=== PATIENT | male | born 1965 | race Caucasian/White ===

== ENCOUNTER 2023-11-13 16:43 | Inpatient (IN) | payer OTHER, SELFPAY ==
[2023-11-13] VITALS (25 sets, daily range): BP systolic 84–120; BP diastolic 45–70; BMI 28.8; BMI 28.1
[2023-11-13] MEDS: TYLENOL 1000 MG PO (12:42)
[2023-11-13 13:04] LABS: % Basophils 0.6 % (0-2); % Eosinophils 0.6 % (0-6); % Lymphocytes 5.5 % (20.5-51.1); % Monocytes 7.1 % (1.7-9.3); % Neutrophils 85.2 % (42.2-75.2); Absolute Basophils 0.1 10^3/uL (0-0.2); Absolute Eosinophils 0.1 10^3/uL (0-0.7); Absolute Immature Granulocytes 0.2 10^3/uL (0-0.05); Absolute Lymphocytes 0.9 10^3/uL (1.2-3.4); Absolute Monocytes 1.1 10^3/uL (0.1-0.6); Absolute Neutrophils 13.4 10^3/uL (1.4-6.5); Hemoglobin 13.1 g/dL (13.0-18.0); Mean Corp Hgb Conc. 35.4 g/dL (33.0-37.0); Mean Corpuscular Hgb 29.1 pg (27.0-31.0); Mean Corpuscular Volume 82.2 fL (80.0-94.0); Mean Platelet Volume 9.8 fL (7.4-10.4); Nucleated Red Blood Cells % 0 % (-); Platelet Count 230 10^3/uL (130-400); Red Cell Dist. Width 20.3 % (11.5-14.5); White Blood Cell Count 15.7 10^3/uL (4.8-10.8)
[2023-11-13 13:17] LABS: Lactic Acid 3.1 mmol/L (0.7-2.0)
[2023-11-13 13:19] LABS: COVID-19 Antigen Negative (Negative)
[2023-11-13 13:27] LABS: ALT (SGPT) 17 U/L (0-50); AST (SGOT) 21 U/L (17-59); Albumin 3.7 g/dl (3.5-5.0); Alkaline Phosphatase 80 U/L (38-126); Blood Urea Nitrogen 23 mg/dl (9-20); Calcium 8.7 mg/dl (8.4-10.2); Carbon Dioxide 21 mmol/L (22-30); Chloride 97 mmol/L (98-107); Estimated Creatinine Clearance 58 ml/min; Glucose 183 mg/dl (70-99); Potassium 3.3 mmol/L (3.5-5.1); Sodium 127 mmol/L (135-145); Total Bilirubin 1.8 mg/dl (0.2-1.3); Total Protein 7.3 g/dl (6.3-8.2); eGFR > 60.00
--- NOTE | 2023-11-13 14:52 | ED.GENMED ---
History of Present Illness
General
Chief Complaint: Cold/Flu/URI Symptoms
Time Seen by Provider: 11/13/23 12:38
Travel History
Have you had any contact with someone who has COVID-19?: No
Do you have any symptoms of coronavirus? Fever > 100 degrees, chills, cough, shortness of breath, sore throat, loss of taste or smell, muscle aches, or headache?: Yes
Symptoms:: cough, chills, fever
History of Present Illness
History of Present Illness:
58-year-old male with history of HIV on HAART therapy, uncertain about his viral load or CD4 counts, presents to the emergency department for evaluation of fever and cough that began on Tuesday. His primary care doctor advised him to come to the
emergency department earlier this week but he declined. Called 911 today due to shortness of breath where he was noted to be hypoxic on room air. He also notes a recent diagnosis of lymphoma but has not yet started chemotherapy
Past History
Past History
ED Past Medical History: Other (Syphilis, Hypoglycemia, PNA); Negative Asthma, HTN, Hypercholesterolemia or NIDDM
ED Past Surgical History: None
Social History
Tobacco: Smoker
Alcohol: None
Personal: Single
Living: alone
Family History
Family History: Negative Diabetes, Hypertension or CAD
Review of Systems
Review of Systems
Allergies reviewed?: Yes
All Other Systems: ROS reviewed and negative except as documented in HPI and ROS
Phy Exam
Physical Exam
Physical Exam:
GEN: Ill-appearing, diaphoretic, tachypnea
Eyes: PERRLA, EOMs intact, no scleral icterus
HENT: NCAT, oral mucosa moist, no JVD, no cervical adenopathy.
Lungs:Coarse rhonchi in the left middle and lower lobes
Cardiac: Tachycardic, regular
Abdomen: S, NT, ND, NABS, no masses or hepatosplenomegaly
Neuro: AO x 3, no focal deficits to BUE/BLE, normal sensation throughout
MSK: No gross deformity or ecchymosis. No edema. No digital clubbing
Skin: No rashes, petechiae. Normal color, no pallor or jaundice.
Psych: Calm, cooperative, proper hygiene
Course
Orders/Labs/Results
Orders:
Orders
11/13/23 12:34
Electrocardiogram (*1) Urgent
Reason for Study: Chest Pain
Cardiac Monitoring- Treatment ONCE
IV Insert/Care/Rem.- Treatment PRN
11/13/23 12:35
EKG- Treatment ONCE
11/13/23 12:38
Acetaminophen [Tylenol] 1,000 mg .ROUTE .STK-MED ONE
11/13/23 12:41
Acetaminophen [Tylenol] 1,000 mg PO NOW STA
11/13/23 12:49
CR Chest - 2 Views Urgent
Comment:
Reason For Exam: cough/SOB
11/13/23 12:50
0.9% Sodium Chloride 1000 ml [Nss] 2,000 ml IV BOLUS
11/13/23 12:51
COVID-19 Antigen Urgent
Source: Nasal Swab
Complete Blood Count/With Diff Urgent
Comprehensive Metabolic Panel Urgent
Lactic Acid Urgent
Blood Culture Q30M
BONNIE Source: Blood/Venous
Specimen Description:
Date Specimen was Collected: 11/13/23
Time Specimen was Collected: 12:35
Influenza A+B Rapid Molecular Urgent
BONNIE Source: Nasal Swab
Specimen Description:
11/13/23 12:52
Blood Culture Q30M
BONNIE Source: Blood/Venous
Specimen Description:
Date Specimen was Collected: 11/13/23
Time Specimen was Collected: 12:35
11/13/23 14:24
Azithromycin 500 mg/250 ml [Zithromax Infusion] 500 mg in 250 ml IV NOW
CefTRIAXone [Rocephin] 1,000 mg IV NOW STA
Abnormal Lab Results
11/13/23
12:51
WBC 15.7 H 10^3/uL
(4.8-10.8)
RBC 4.50 L 10^6/uL
(4.70-6.10)
Hct 37.0 L %
(39.0-52.0)
RDW 20.3 H %
(11.5-14.5)
Abs Immat Gran (auto) 0.2 H 10^3/uL
(0-0.05)
Absolute Neuts (auto) 13.4 H 10^3/uL
(1.4-6.5)
Absolute Lymphs (auto) 0.9 L 10^3/uL
(1.2-3.4)
Absolute Monos (auto) 1.1 H 10^3/uL
(0.1-0.6)
Immature Gran % 1.0 H %
(0-0.5)
Neutrophils % 85.2 H %
(42.2-75.2)
Lymphocytes % 5.5 L %
(20.5-51.1)
Sodium 127 L mmol/L
(135-145)
Potassium 3.3 L mmol/L
(3.5-5.1)
Chloride 97 L mmol/L
(98-107)
Carbon Dioxide 21 L mmol/L
(22-30)
BUN 23 H mg/dl
(9-20)
Glucose 183 H mg/dl
(70-99)
Lactic Acid 3.1 H mmol/L
(0.7-2.0)
Total Bilirubin 1.8 H mg/dl
(0.2-1.3)
11/13/23 12:51
11/13/23 12:51
Vital Signs
Initial and Last Documented VS:
Initial Vital Signs
Temp Pulse Resp BP Pulse Ox
102.9 F H 124 30 120/68 87
11/13/23 12:36 11/13/23 12:36 11/13/23 12:36 11/13/23 12:36 11/13/23 12:36
Last Documented Vital Signs
Temp Pulse Resp BP Pulse Ox
97.9 F 93 22 99/68 98
11/13/23 15:14 11/13/23 14:05 11/13/23 14:05 11/13/23 15:00 11/13/23 15:15
MDM/Problems Addressed
MDM/Problems Addressed:
Chest x-ray independently interpreted by me shows an extensive left-sided pneumonia. The patient is high risk for outpatient therapy given that he has hypoxic, has underlying malignancy with lymphoma, and has known HIV positive status with unknown
viral load or CD4 count. Will admit him on broad-spectrum IV antibiotics for supplemental oxygen and further management
Comment
Comment:
EKG independently interpreted by me shows a sinus tachycardia at a rate of [address] changes concerning for ischemia, QTc is 450
*Critical Care Note
Total Time (30-74mins, 75-104mins- exclusive of procedures): Not Applicable
ED Attending Note
-
Portions of this chart may have been created with voice recognition software.� Occasional wrong word or��sound alike� substitutions may have occurred due to the inherent limitations of voice recognition software.
Discharge Plan
Departure
Patient Disposition: Admit
Date of Disposition: 11/13/23
Time of Disposition: 14:52
Admit to: Med/Surg
Presentation/result/management discussed w/ accepting MD/DO: Hospitalist
Discharge Problem:
Community acquired pneumonia
Prescriptions:
No Action
prednisone 20 mg Tablet
40 mg PO DAILY
Patient Comments:
11/13/2023, prescription states, take 2 tablets daily@0800 'until Oncologist tells you stop'.
Biktarvy 50-200-25 mg Tablet
1 tab PO DAILY
Referrals:
Anabela Marley CRNP [Family Provider] -
Interventions
Interventions:
*Risk Screen - Suicide Last Done: 11/13/23 12:36
*General Assessment Last Done: 11/13/23 12:36
*Neglect/Abuse Screening Last Done: 11/13/23 12:36
ED- Fall Risk Assessment Last Done: 11/13/23 12:57
*ED COVID-19 Vaccine History Last Done: 11/13/23 12:36
Discharge Date and Time
Print Language: NEPALESE
--- NOTE | 2023-11-13 15:06 | PHANOTE ---
Addendum entered by Callum Griffiths 11/13/23 15:15:
11/13/2023, med rec tech, pt. states to take only one prescription medication daily but he does not know its name or strength; pt. states to get this med. from the [facility] but closed at time of interview.
Original Note:
11/13/2023, med rec tech, pt. obtunded at time of interview; used pharmacy fill data to compile a list of pt.'s meds.; pt. has no recent [facility] records; primary contact could not be reached.
[2023-11-13] MEDS: NSS 2000 IV (15:13)
[2023-11-13] MEDS: ZITHROMAX INFUSION 250 IV (15:31)
[2023-11-13] MEDS: ROCEPHIN 1000 MG IV (15:31)
--- NOTE | 2023-11-13 15:42 | HPS.HSE ---
Family Physician
-
Family Physician: Anabela Marley
Chief Complaint
-
cough
History of Present Illness
58-year-old man with history of HIV (dx on 2019) on HAART therapy, uncertain about his viral load or CD4 counts, comes to the emergency department for evaluation of fever and cough that began 6 days ago. His primary care doctor advised him to come
to the emergency department earlier this week but he declined. Patient Called 911 today due to shortness of breath. EMS noted that he was hypoxic on room air. He also reports a recent diagnosis of lymphoma (has not yet started chemotherapy). At
the time of my interview he was delirious and unable to answer most of my questions, but cooperated with exam.
Medical History
Past Medical History
Past Medical History: Reports Other
Additional Past Medical History:
Syphilis,
Hypoglycemia,
PNA
Abdominal lymphadenopathy
Acute kidney failure, unspecified
Controlled type 2 diabetes mellitus with hyperglycemia, unspecified bus cleaner insulin use status
HIV infection
Acquired immune deficiency syndrome (AIDS)
Disorders of lymph node and lymphatics
Acute febrile illness
Abdominal lymphadenopathy
Acute kidney failure, unspecified
Cigarette nicotine dependence
Chronic shortness of breath
Past Surgical History: Reports None
Social History
Unable to obtain full social history at this time due to: Acuity
Family History
Family History: Not pertinent
Allergies / Home Medications
Allergies reflects when Allergies were last updated in [employer].
Home Medications with original date entered in [employer]
Allergy/Medication List:
Allergies
Allergy/AdvReac Type Severity Reaction Status Date / Time
shellfish derived Allergy Unknown Unknown Verified 11/13/23 12:35
chicken derived Allergy Rash Verified 11/13/23 12:35
Home Medications
bictegravir 50 mg-emtricitabine 200 mg-tenofovir alafenam 25 mg tablet (Biktarvy) 1 tab PO DAILY 11/13/23
prednisone 20 mg tablet 40 mg PO DAILY 11/13/23
Review of Systems
-
Unable to obtain full review of systems at this time due to: Acuity
History Source: Patient
Physical Exam
Vital Signs
Vital Signs
Temp Pulse Resp BP Pulse Ox
97.9 F 93 22 99/68 98
11/13/23 15:14 11/13/23 14:05 11/13/23 14:05 11/13/23 15:00 11/13/23 15:15
Physical Exam
General: Well Developed, Well Nourished, Appears in Distress and Fever
HEENT: NormoCephalic, Nose Appears Normal and Ears Appear Normal
Respiratory: Rales, Rhonchi and Decreased Breath Sounds
Cardiac: S1/S2 and Tachycardia
GI: Soft, Non Tender and Non Distended
Musculoskeletal: No Clubbing, No Cyanosis and No Edema
Skin: Warm; No Dry
Neuro: No Awake, Alert, Oriented or AO x 3
Psych: Confused
Laboratory Results
-
11/13/23 12:51
11/13/23 12:51
Laboratory Results
Lactic Acid 3.1 mmol/L (0.7-2.0) H 11/13/23 12:51
Total Bilirubin 1.8 mg/dl (0.2-1.3) H 11/13/23 12:51
AST 21 U/L (17-59) 11/13/23 12:51
ALT 17 U/L (0-50) 11/13/23 12:51
Alkaline Phosphatase 80 U/L (38-126) 11/13/23 12:51
Data Reviewed
-
Lab Data: Labs Reviewed by me
Impression/Plan
-
IMPRESSION:
58 man with HIV, and PNA. CD4 count not known. Viral load not known. Notable findings:
Pulse 124
Temp 102.9
WBC 15.7
Na 127
K 3.3
BUN/Creat 23/1.3
CXR: Bilateral central fluffy infiltrates
Lactic acid 3.1
PLAN:
1. PNA, in setting of HIV. Meets criteria for sepsis.
Sepsis abx and fluids per protocol
2. HIV - likely taking Biktarvy.
Will order Biktarvy, and try to contact PCP later in week for med list
Check CD4
Check viral load
3. Low Na, Low K, likely hypovolemic
Replete
recheck in am
4. BUN/Creat >20, likely from dehydration
IV saline
Presumed full code
VCD for DVTp
[2023-11-13 17:38] LABS: Lactic Acid 1.8 mmol/L (0.7-2.0)
[2023-11-13] MEDS: TYLENOL/FEVERALL 650 MG RECTAL (18:05)
--- NOTE | 2023-11-13 18:31 | PHA.VAN.IN ---
Assessment
- Assessment
Renal Function: Appears elevated from baseline (SCr 1.3, baseline 0.8)
Maximum Temperature: 102.9
Concomitant Antimicrobials: piperacillin-tazobactam
Plan
- Plan
Initial / Loading Dose: 2000 mg pending administration (23 mg/kg)
Maintenance Regimen: dose by level
Monitoring: R 11/13 am
MRSA Screen: Ordered per protocol (PCR)
Pharmacokinetics Vancomycin I
- -
Patient Age: 58
Patient Sex: Male
Vancomycin Day #: 1
Indication: Pulmonary/Respiratory
Requesting Provider: Dr Ventura
Pertinent Antimicrobial Allergies:
no pertinent allergies
Height / Weight:
Height 5 ft 8 in
Actual Weight 86 kg
Adjusted BW in k.8
Pertinent Past Medical History: HIV,
- Vital Signs / Lab Results
Temp Pulse Resp BP Pulse Ox
101.1 F H 94 21 97/68 76
11/13/23 18:02 11/13/23 16:45 11/13/23 16:45 11/13/23 16:03 11/13/23 17:43
Lab Results - Hematology
11/13/23
12:51
WBC 15.7 H
Lab Results - Chemistry
11/13/23
12:51
BUN 23 H
Creatinine 1.3
Estimated Creat Clear 58
Albumin 3.7
11/13/23 11/13/23
12:51 17:13
Lactic Acid 3.1 H 1.8
Microbiology Results
11/13/23 12:51 Influenza Types A & B (АЛЕКСАНДР) - Final
Nasal Swab Negative for Influenza A & B, NAAT
Negative results must be combined with clinical observations
and patient history.
Nucleic Acid Amplification test (NAAT)performed on the
[employer] platform.
[2023-11-13 18:58] LABS: HCO3 19.5 mmol/L (21-28); O2 Saturation % 99.4 % (94-98); PCO2 30 mmHg (35-48); PO2 135 mmHg (83-108); pH 7.42 (7.35-7.45)
--- NOTE | 2023-11-13 19:00 | PTCARENOTE ---
Pt admitted to ICU 3370 from ED. Received on NIV50% FiO2, now weaned to 40% by SENIOR ESCROW OFFICER. Afebrile 98.6 Sinus tach up to 120.
Lung sounds with crackles in the left base and exp. wheeze throughout.
CHG bath given.
--- NOTE | 2023-11-13 19:30 | W.PN.UPDATE ---
Update Note
Progress Note Update
Consulted infectious disease Dr. Canela, recommendations received: obtain sputum culture, legionella, pneumococcal; agreed with current antibiotic regime for now. ABG obtained, will trial patient between non invasive ventilation and HFNC as patient
tolerates. Transitioned to HFNC, tachypnea has improved, oxygen saturation 98% and breathing more comfortably.
Patient's HIV doctor is Dr. Anabela Marley, he does not know his most recent CD4 count. Lab pending on CD4 count.
[2023-11-13] MEDS: NSS 1000 IV (20:01)
[2023-11-13] MEDS: VANCOCIN 540 MG IV (20:04)
[2023-11-13] MEDS: KCL 270 MEQ IV (20:07)
[2023-11-13] MEDS: BIKTARVY 50-200-25 MG TABLET 1 TABLET PO (20:51)
--- NOTE | 2023-11-13 21:30 | PTCARENOTE ---
Report received from previous shift RN [id number]. Pt in bed, AAO3, anxious and diaphoretic. Pt received on NIV O2; reviewed ABG results and pt status w CAR DRIVER JONAH Pierson ordered to wean pt to HiFlow nasal cannula O2, RT notified. Pt less anxious when
transitioned to HiFlow O2 and able to have some marco antonio robert. Pt denies SOB and cough, lung sounds are decreased/coarse throughout w insp/exp wheeze throughout to auscultation. Pt informed of needed sputum specimen, specimen container left at bedside.
Telemetry rhythm reveals ST, HR 100's, no edema noted, palpable peripheral pulses present. Extremities cool and clammy to touch. HyperBS, abdomen soft round nontender. Pt reports recent weight loss and decreased appetite. Urinal at bedside. Skin
intact. R AC int w IVF per order, R FA int flushed. Safe environment maintained, call garcia within reach. Will monitor closely.
[2023-11-13] MEDS: ZOSYN 100 IV (22:07)
--- NOTE | 2023-11-13 22:44 | W.PN.SEPSIS ---
Sepsis
Vital Signs
Temp Pulse Resp BP Pulse Ox
98.6 F 81 18 84/69 99
11/13/23 20:15 11/13/23 22:31 11/13/23 22:31 11/13/23 22:31 11/13/23 22:31
Physical Exam
Physical Exam:
A focused exam was performed after fluid resuscitation.
Capillary Refill
Bilateral Upper Extremity:
Prashant Time: Less than 3 sec
Bilateral Lower Extremity:
Prashant Time: Less than 3 sec
Pulse Evaluation
Bilateral Radial:
Pulse Evaluation: Present
Bilateral Dorsalis Pedis:
Pulse Evaluation: Present
[2023-11-14] VITALS (25 sets, daily range): BP systolic 80–100; BP diastolic 54–86; BMI 28.4
[2023-11-14 00:12] LABS: Magnesium 1.7 mg/dl (1.6-2.3)
[2023-11-14 01:02] LABS: APTT 23.6 Sec (23.4-35.0); INR 1.39; PT 16.9 Sec (11.4-14.6)
--- NOTE | 2023-11-14 01:05 | PTCARENOTE ---
RT able to taper HiFlow O2 to 40L/40%, pt's pox remains >96%. Pt sleeping intermittently when undisturbed. Afebrile. Less wheezing auscultated, remains decreased/coarse. MAP remains > 65mmHg, Levophed never initiated per order parameters. Will
continue to monitor closely.
[2023-11-14] MEDS: NSS 1000 IV ×3 (01:09→11:28)
[2023-11-14] MEDS: ZOSYN 100 IV ×2 (02:57→07:49)
[2023-11-14 04:28] LABS: % Basophils 0.4 % (0-2); % Immature Granulocytes 0.8 % (0-0.5); % Lymphocytes 11.4 % (20.5-51.1); % Monocytes 9.9 % (1.7-9.3); % Neutrophils 76.5 % (42.2-75.2); Absolute Basophils 0.1 10^3/uL (0-0.2); Absolute Eosinophils 0.1 10^3/uL (0-0.7); Absolute Immature Granulocytes 0.1 10^3/uL (0-0.05); Absolute Lymphocytes 1.4 10^3/uL (1.2-3.4); Absolute Monocytes 1.2 10^3/uL (0.1-0.6); Absolute Neutrophils 9.5 10^3/uL (1.4-6.5); Hematocrit 33.9 % (39.0-52.0); Hemoglobin 11.4 g/dL (13.0-18.0); Mean Corp Hgb Conc. 33.6 g/dL (33.0-37.0); Mean Corpuscular Hgb 29.5 pg (27.0-31.0); Mean Corpuscular Volume 87.8 fL (80.0-94.0); Mean Platelet Volume 10.2 fL (7.4-10.4); Nucleated Red Blood Cells % 0 % (-); Platelet Count 175 10^3/uL (130-400); Red Blood Cell Count 3.86 10^6/uL (4.70-6.10); Red Cell Dist. Width 21.1 % (11.5-14.5); White Blood Cell Count 12.5 10^3/uL (4.8-10.8)
--- NOTE | 2023-11-14 04:39 | PTCARENOTE ---
AM lab work sent per orders. Upon attempting to reposition pt in bed, pt found to have been incontinent of water hamilton/orange bm. Incontinence care and CHG bath/linen change provided. No other change in pt assessment. Will continue to monitor closely.
[2023-11-14 04:52] LABS: ALT (SGPT) 11 U/L (0-50); AST (SGOT) 21 U/L (17-59); Albumin 2.8 g/dl (3.5-5.0); Alkaline Phosphatase 66 U/L (38-126); Blood Urea Nitrogen 26 mg/dl (9-20); Calcium 8.3 mg/dl (8.4-10.2); Carbon Dioxide 19 mmol/L (22-30); Chloride 110 mmol/L (98-107); Estimated Creatinine Clearance 69 ml/min; Glucose 118 mg/dl (70-99); Magnesium 2.5 mg/dl (1.6-2.3); Phosphorus 3.9 mg/dl (2.5-4.5); Potassium 3.6 mmol/L (3.5-5.1); Sodium 137 mmol/L (135-145); Total Bilirubin 1.2 mg/dl (0.2-1.3); eGFR > 60.00
[2023-11-14 04:55] LABS: Vancomycin Random 12.9 ug/ml
--- NOTE | 2023-11-14 07:47 | PHA.VAN.FU ---
Vancomycin Assessment / Plan
- Assessment
Renal Function: SCR Decreasing (If goes back to baseline, will add scheduled dosing)
WBC's are: Trending Down
In the past 24 hrs, patient has been: Febrile
Concomitant Antimicrobials: Piperacillin/Tazobactam
- Assessment - Therapeutic Drug Monitoring
Random Level: 12.9
- Dosing Plan
Dosing by Level: Re-dose today (750mg)
- Monitoring Plan
Random Level: 11/14 @0600
- Follow Up
Pharmacy will continue to follow.
Vancomycin Follow UP
- -
Patient Age: 58
Patient Sex: Male
Vancomycin Day #: 2
Indication: Pulmonary/Respiratory
Requesting Provider: Dr Ventura
Pertinent Antimicrobial Allergies:
no pertinent allergies
Height / Weight:
Height 5 ft 8 in
Actual Weight 84.6 kg
Adjusted BW in k.8
Pertinent Past Medical History: HIV,
- Vital Signs / Lab Results
Temp Pulse Resp BP Pulse Ox
97.4 F 75 18 84/62 97
11/14/23 07:24 11/14/23 06:00 11/14/23 06:00 11/14/23 06:00 11/14/23 07:37
Lab Results - Hematology
11/13/23 11/14/23
12:51 04:14
WBC 15.7 H 12.5 H
Lab Results - Chemistry
11/13/23 11/14/23
12:51 04:14
BUN 23 H 26 H
Creatinine 1.3 1.1
Estimated Creat Clear 58 69
Albumin 3.7 2.8 L
11/13/23 11/13/23 11/13/23
12:51 17:13 20:56
Lactic Acid 3.1 H 1.8 Cancelled
Microbiology Results
11/13/23 12:51 Influenza Types A & B (АЛЕКСАНДР) - Final
Nasal Swab Negative for Influenza A & B, NAAT
Negative results must be combined with clinical observations
and patient history.
Nucleic Acid Amplification test (NAAT)performed on the
[employer] platform.
Therapeutic Drug Monitoring
Random Vancomycin 12.9 ug/ml 11/14/23 04:13
--- NOTE | 2023-11-14 09:18 | CON.INTV ---
Consultation
Consultation Request
Date/Time Consultation Requested: 11/13/2023
Date/Time Consultation Performed: 11/14/2023 - 5
Requesting Provider: Dr. Ventura
Performing Provider: Dr. Subramanian
Reason for Consultation: Pneumonia
Medical History
-
Chief Complaint: SOB
History of Present Illness:
58-year-old M with PMHx of HIV/AIDS who p/w SOB. Patient is unaware of his past medical history or medications that he supposed to be on. Poor historian. He called 911 at home due to shortness of breath. He also says that he was recently
hospitalized at [facility] about 2 months ago where he was diagnosed with lymphoma. When asked if he had a biopsy done he said no that it was all diagnosed via imaging. He also said that he was treated for pneumonia at that time. In ER he
developed worsening respiratory distress requiring BiPAP, and was hypotensive. Pt TRX here for further care with critical care services consulted for further evaluation.
When I saw the patient he was on nasal cannula at 3.5 L/min breathing comfortably. SBP 85 -not currently on vasopressors. He is answer my questions appropriately and in no acute distress. He seems distressed about the fact that he has pneumonia
and also recent diagnosed lymphoma. He is worried that he will be able to do chemotherapy once he is finally out of the hospital.
PMHx: HIV, tobacco use disorder
PSHx: Noncontributory
Past Medical History
Past Medical History: Other (above as per HPI)
Past Surgical History: Other (above as per HPI)
Social History
Tobacco: Non-smoker
Alcohol: None
Drug: None
Family History
Family History: Reviewed & Not Pertinent
Allergies / Home Medications
Allergies
Allergy/AdvReac Type Severity Reaction Status Date / Time
shellfish derived Allergy Unknown Unknown Verified 11/13/23 12:35
chicken derived Allergy Rash Verified 11/13/23 12:35
Home Medications
�Medication �Instructions �Recorded �Confirmed �Last Taken �Type
bictegravir 50 mg-emtricitabine 1 tab PO DAILY 11/13/23 11/14/23 Unknown History
200 mg-tenofovir alafenam 25 mg
tablet (Biktarvy)
prednisone 20 mg tablet 40 mg PO DAILY 11/13/23 11/14/23 Unknown History
Review of Systems
-
History Source: Patient
All other systems: Negative unless noted
Vitals / Labs / Diagnostic Testing
Vital Signs
Temp Pulse Resp BP Pulse Ox
97.4 F 73 17 91/66 95
11/14/23 07:24 11/14/23 08:00 11/14/23 08:00 11/14/23 08:00 11/14/23 08:00
Lab Data
11/14/23 04:14
11/14/23 04:14
Laboratory Results
11/13/23 11/13/23 11/14/23
18:51 23:36 00:27
PT Cancelled 16.9 H
INR Cancelled 1.39
APTT Cancelled 23.6
pH 7.42
pCO2 30 L
pO2 135 H
HCO3 19.5 L
O2 Delivery Level
Microbiology
11/13/23 12:51 Nasal Swab Influenza Types A & B (АЛЕКСАНДР) - Final
Negative for Influenza A & B, NAAT
Negative results must be combined with clinical observations
and patient history.
Nucleic Acid Amplification test (NAAT)performed on the
[employer] platform.
Diagnostic Testing:
Physical Exam
-
HEENT: Normocephalic and Anicteric
Cardiovascular: S1/S2 and Peripheral Edema (Negative)
Respiratory: Wheeze (Negative), Rales (Negative) and Rhonchi (Left anterior hemithorax)
GI: Soft, Non Distended and Non Tender
Neurology: Awake and Alert
Skin: Warm and Dry
General: Respiratory Distress (Negative) and Comfortable
Assessment
-
Assessment: 58-year-old M with PMHx of HIV/AIDS who p/w SOB. Patient is unaware of his past medical history or medications that he supposed to be on. Poor historian. He called 911 at home due to shortness of breath. He also says that he was
recently hospitalized at [facility] in [place], [place] about 2 months ago where he was diagnosed with lymphoma. When asked if he had a biopsy done he said no that it was all diagnosed via imaging - per ID documentation the pt had a RML lung
nodule that was Bx showing DLBCL. He also said that he was treated for pneumonia at that time. In ER he developed worsening respiratory distress requiring BiPAP, and was hypotensive. Pt TRX here for further care with critical care services
consulted for further evaluation.
Chronic conditions MEDICAL DIAGNOSTIC RADIOGRAPHER: HIV, tobacco use disorder
Impression:
#L-sided CAP in setting of HIV/AIDS
#Reported low CD4 count
#HIV/AIDS reportedly on Biktarvy as an outpatient
#+MRSA via nasal screen
#Hypotension (unclear what his baseline BP is)
#Hypoalbuminemia
#Recently Dx DLBCL via RML nodule biopsy
Plan:
- Continue broad spectrum ABx as per ID
- Check sputum Cx and send for silver stain to r/o PCP PNA
- Follow up CD 4 count and HIV viral load
- Maintain SpO2 >90-94%
- Maintain MAP>65; low threshold to start levophed
- obtain outside hospital medical records where he was Dx with pneumonia and lymphoma recently
- Replete electrolytes with K>4, Mg>2
- Maintain euglycemia with goal BG 140-180
- prn nebulized bronchodilators
- Incentive spirometer
- DVT ppx
Given patient's hypotension with SBP <90 with severe left-sided pneumonia and sepsis, patient requires hourly vital signs and close monitoring. High chance that he also may require vasopressors. Continue ICU level care.
Critical care statement: A total of 40 minutes of critical care time was provided for this patient today. This includes management of unstable vital signs, evaluation of the patient at bedside, reviewing the patient's pertinent medical records
including radiographs, microbiology, laboratory evaluations, and discussion with primary team, consultants, pharmacy, nutrition, physical therapy, case management, charge nurse, critical care nursing, and respiratory therapy.
Data:
CXR 11-13-2023: Moderately extensive left perihilar pneumonia
[2023-11-14] MEDS: BIKTARVY 50-200-25 MG TABLET 1 TABLET PO (09:59)
--- NOTE | 2023-11-14 10:24 | CON.ID ---
Consultation
-
Date/Time Consultation Requested: November 13, 2023 1910
Date/Time Consultation Performed: November 14, 2023 1030
Requesting Provider: Dr. Ayo Nieves
Performing Provider: Dr. Rebecca Oliver
Reason for Consultation: Pneumonia, HIV
Chief Complaint / Past History
Chief Complaint
Cough and SOB
History of Present Illness
58-year-old male diagnosed with HIV in May 2020 (CD4 245, VL 77,000) when he was hospitalized at [facility] with abdominal pain and found to have diffuse lymphadenopathy. He underwent groin lymph node biopsy which was
nondiagnostic.Patient without insurance at the time. He was referred to [facility] HIV services. He was to have repeat CAT scan and biopsy. However patient was noncompliant and did not seek medical care after discharge. He states he was
recently hospitalized at [facility] for about 2 to 3 weeks with pneumonia in [facility] 2023. He does not remember what treatment he received. After discharge, he was referred to Heme-Onc for the LAD and to [facility] HIV clinic. He complied
this time and was evaluated by Dr. Caty Marley. He had labs done October 04, 2023 and was started on Biktarvy. His CD4 was 88. Patient also had right lung nodule biopsy done which recently resulted as large B-cell lymphoma on November 04, 2023. In
the meantime patient again developed cough and shortness of breath approximately 1 week ago. He initially refused to come to the hospital. However he did not improve. Positive fevers and chills. He came to the ER yesterday. Temperature 102.9.
Blood pressure relatively low. O2 saturation 87 %. He received ceftriaxone and azithromycin in the ER then broadened to vancomycin and Zosyn. Patient denies ill contacts. He has mild headache, mild rhinorrhea, no sore throat. Cough productive
of phlegm. No nausea or vomiting. Positive diarrhea. No dysuria. He reports he has been taking his Biktarvy every day.
Past History
Additional Past Medical History:
HIV Dx'd 2019, noncompliant. Biktarvy since 09/2023
Syphilis treated with IM Bicillin L-A x 2018.
Recent dx of large B cell lymphoma
Allergy History:
shellfish derived Allergy (Unknown, Verified 11/13/23 12:35)
Unknown
chicken derived Allergy (Verified 11/13/23 12:35)
Rash
Medications Reviewed: Yes
Current Antibiotics:
Vancomycin
Zosyn
Social History
Tobacco: Former Smoker
Alcohol: None
Drug: None
Personal: Single
Living: Alone
Employment: Employed ([employer])
Family History
Family History: Not Pertinent
Review of Systems
Review of Systems
General: Fever, Chills and Change in Appetite
HEENT: Negative Stiff Neck or Pharyngitis
Cardiovascular: Negative Chest Pain
Respiratory: Dyspnea and Cough
Gasteroenterology: Negative Nausea or Vomiting
Genital / Urological: Negative Dysuria or Flank Pain
Endocrine: Weakness
Skin / Hair / Nails: Negative Rash
Neurological: Negative Headache or Dizziness
All systems: All other systems were reviewed and were negative
Vital Signs
Temp Pulse Resp BP Pulse Ox
97.4 F 83 25 95/63 97
11/14/23 07:24 11/14/23 10:00 11/14/23 10:00 11/14/23 09:00 11/14/23 10:00
Selected Entries
11/13/23
12:36
Temp 102.9 F H
Physical Exam
Physical Exam
Constitutional: Comfortable
Head: Other (No frontal or maxillary sinus tenderness)
Eyes: No Conjunctival Hemorrhage and Sclera Anicteric
Cardiovascular: Regular Rate and S1/S2
Pulmonary: Coarse (left )
Gastrointestinal: Soft, Non Tender, Non Distended and Normal Bowel Sounds
Genito-Urinary: Negative CVA Tenderness
Extremities: Negative Edema
Skin: Negative Rash
Neurological: AO x 3
Lab / Diagnostic Study Results
11/14/23 04:14
11/14/23 04:14
Abs Immat Gran (auto) 0.1 10^3/uL (0-0.05) H 11/14/23 04:14
Absolute Neuts (auto) 9.5 10^3/uL (1.4-6.5) H 11/14/23 04:14
Absolute Lymphs (auto) 1.4 10^3/uL (1.2-3.4) 11/14/23 04:14
Absolute Monos (auto) 1.2 10^3/uL (0.1-0.6) H 11/14/23 04:14
Absolute Basos (auto) 0.1 10^3/uL (0-0.2) 11/14/23 04:14
Immature Gran % 0.8 % (0-0.5) H 11/14/23 04:14
Neutrophils % 76.5 % (42.2-75.2) H 11/14/23 04:14
Lymphocytes % 11.4 % (20.5-51.1) L 11/14/23 04:14
Monocytes % 9.9 % (1.7-9.3) H 11/14/23 04:14
Eosinophils % 1.0 % (0-6) 11/14/23 04:14
Basophils % 0.4 % (0-2) 11/14/23 04:14
PT 16.9 Sec (11.4-14.6) H 11/14/23 00:27
INR 1.39 11/14/23 00:27
Lactic Acid Cancelled 11/13/23 20:56
Microbiology Results
Micro:
11/13/23 23:38 Nasal Screen MRSA (PCR) - Final
Nose Staph aureus MRSA
11/14/23 00:21 Legionella Urinary Antigen - Pending
Urine
11/13/23 12:51 Influenza Types A & B (АЛЕКСАНДР) - Final
Nasal Swab Negative for Influenza A & B, NAAT
Negative results must be combined with clinical observations
and patient history.
Nucleic Acid Amplification test (NAAT)performed on the
[employer] platform.
11/13/23 12:51 Blood Culture - Pending
Blood/Venous
11/13/23 12:52 Blood Culture - Pending
Blood/Venous
CXR: Moderately extensive left perihilar pneumonia
Assessment / Plan
# Left pneumonia with acute hypoxemic respiratory failure.
(second PNA within 2 months)
# Sepsis with fever, leukocytosis
# HIV h/o noncompliance. Now follows at [facility] HIV [facility]. CD4 88 (10/04/23). On Biktarvy since 09/2023.
# Recent diagnosis of large B cell lymphoma from right lung nodule biopsy. Not on treatment yet.
# MRSA colonized.
- Send sputum for culture
- Evaluate for Pneumocystis.
Send induced-sputum for Pneumocystis DFA with reflex to PCR.
Check Fungitell. If negative helpful. If positive, possible false positive from Zosyn
- DC Zosyn
- Start ceftriaxone and doxycycline.
-Continue Vancomycin IV (MRSA screen positive).
- Continue Biktarvy.
- Trend fever, wbc, oxygen requirement.
Care Review
Plan reviewed with: Physician (Dr. Larry)
[2023-11-14] MEDS: VANCOCIN 150 IV (11:37)
[2023-11-14] MEDS: VIBRAMYCIN 100 MG PO ×2 (12:58→20:40)
[2023-11-14] MEDS: FLEXBUMIN 100 IV ×2 (12:59→16:51)
[2023-11-14] MEDS: ROCEPHIN 2000 MG IV (14:15)
[2023-11-14] MEDS: NSS IV ×2 (14:24→20:40)
--- NOTE | 2023-11-14 17:20 | PTCARENOTE ---
Pt AAOx3. NSR. O2 weaned to 4L NC. Good appetite. Multiple loose BMs today. OOB in chair for 3hrs. All other assessments unchanged at 1200 and 1600.
[2023-11-14] MEDS: LOVENOX 40 MG SC (18:39)
--- NOTE | 2023-11-14 19:38 | W.PN.HOSP.TC ---
Addendum entered and electronically signed by Ayo Macedo MD 11/14/23 22:41:
Attending Addendum-
I saw and evaluated the patient. I reviewed the resident�s note and agree with findings and plan as documented in the resident�s note. feels improved less SOB. Full 12 point ROS reviewed and negative except as documented gen NAD heart RRR lungs
rhonchi LLL abd soft LE no edema Plan:
# Sepsis secondary to PNA- ID input appreciated cont azithro vanco and doxy, cont to monitor closely check CD4 counts repeat labs in am
# Septic Shock- resolved no need for pressors cont to monitor
# Acute Hypoxemic Respiratory Failure- wean o2 for sats > 94%
# Acidosis- cont to monitor repeat BMP in am
# HIV/AIDS- check CD4 counts cont meds ID on board
# HIV Lymphoma- f/u heme onc as OP
Time spent coordinating care, review of plan of care with resident, review of records, med rec, consults, notes, labs, rads, d/w nursing � 58 mins
Original Note:
Today's Communication/Plan
-
- IV Antibiotics
- IV fluids
- CD4 counts pending
- Continue Biktarvy
Assessment / Plan
Assessment / Plan
Acute hypoxemic respiratory failure:
Secondary to pneumonia
CXR 11/12: Moderately extensive left perihilar pneumonia
- IV antibiotics, IV fluids
- Hypoxemia improved. Currently O2 sat 95% on 4L nasal cannula. Weaning O2 as tolerated
Sepsis:
Secondary to pneumonia in immunocompromized patient.
- Leukocytes downtrending 15.7 -->12.5
- Sputum and Blood cultures pending
- Continue Vancomycin, Zosyn, Doxycycline
- ID on board
- ICU admit, for close monitoring and possible blood pressure support. BP systolic 90s and 80s. MAP normal
- IV fluids
HIV:
On Biktarvy daily
- Continue Biktarvy
- CD4 counts pending
Large B-cell lymphoma
Recent diagnosis. Not on chemotherapy
- Consider outpatient hemonc follow up
Hyponatremia:
- Resolved with fluids
Hypokalemia:
- Repleted
BUN/Cr elevated:
- Likely dehydration
- IV fluids
- Trend
DVT prophylaxis: SCDs
Code status: Full code
Anticipated Discharge: > 48 hours
Subjective/Interval History
-
Date of Service: November 14, 2023
Objective Data
-
Vital Signs:
Vital Signs
Temp Pulse Resp BP Pulse Ox
97.5 F 83 24 87/63 95
11/14/23 12:01 11/14/23 18:00 11/14/23 18:00 11/14/23 17:00 11/14/23 17:00
I&O
11/13/23 11/14/23 11/15/23
06:59 06:59 06:59
Intake Total 4130.0 / 4330.0 2760 / 2760
Output Total 1050 / 1050 1350 / 1350
Balance 3080.0 / 3280.0 1410 / 1410
Review of Systems
-
History Source: Patient
Constitutional: Denies Fever
Respiratory: Reports Cough (productive, clear) and Trouble Breathing
Cardiac: Reports No Symptoms
Abdomen/GI: Reports No Symptoms
Genitourinary: Reports No Symptoms
Physical Exam
-
General: Comfortable and Conversant
HEENT: Normocephalic and Oxygen (4L nasal cannula)
Respiratory: Crackles, Non Labored Respirations and Accessory Resp Muscle Use
Cardiac: Regular Rhythm and S1/S2; Negative Murmur
GI: Soft and Nontender
Musculoskeletal: No Edema
Skin: Warm and Dry
Neuro: Awake, Alert and Oriented
Psych: Calm
[2023-11-15] VITALS (24 sets, daily range): BP systolic 80–111; BP diastolic 52–77; BMI 28.9
[2023-11-15 02:32] LABS: % Basophils 0.3 % (0-2); % Eosinophils 0.1 % (0-6); % Lymphocytes 17.4 % (20.5-51.1); % Monocytes 11.5 % (1.7-9.3); % Neutrophils 69.7 % (42.2-75.2); Absolute Immature Granulocytes 0.1 10^3/uL (0-0.05); Absolute Lymphocytes 1.2 10^3/uL (1.2-3.4); Absolute Monocytes 0.8 10^3/uL (0.1-0.6); Hematocrit 30.9 % (39.0-52.0); Hemoglobin 10.6 g/dL (13.0-18.0); Mean Corp Hgb Conc. 34.3 g/dL (33.0-37.0); Mean Corpuscular Volume 84.7 fL (80.0-94.0); Mean Platelet Volume 10.8 fL (7.4-10.4); Nucleated Red Blood Cells % 0 % (-); Platelet Count 219 10^3/uL (130-400); Red Blood Cell Count 3.65 10^6/uL (4.70-6.10); Red Cell Dist. Width 21.5 % (11.5-14.5); White Blood Cell Count 7.1 10^3/uL (4.8-10.8)
[2023-11-15] MEDS: NSS IV (02:32)
[2023-11-15 02:45] LABS: Blood Urea Nitrogen 24 mg/dl (9-20); Calcium 8.7 mg/dl (8.4-10.2); Carbon Dioxide 18 mmol/L (22-30); Chloride 114 mmol/L (98-107); Estimated Creatinine Clearance 95 ml/min; Glucose 99 mg/dl (70-99); Potassium 3.7 mmol/L (3.5-5.1); Sodium 137 mmol/L (135-145); eGFR > 60.00
[2023-11-15 03:07] LABS: Vancomycin Random 7.2 ug/ml
--- NOTE | 2023-11-15 04:00 | PTCARENOTE ---
no changes in pt assessment.
[2023-11-15] MEDS: BIKTARVY 50-200-25 MG TABLET 1 TABLET PO (07:56)
[2023-11-15] MEDS: VIBRAMYCIN 100 MG PO ×2 (07:56→19:44)
--- NOTE | 2023-11-15 08:00 | PTCARENOTE ---
Received patient from shift stacker. Patient AAOX3, odd affect, will stare straight ahead when asked questions and intermittently respond. Patient states he is very overwhelmed, attempted to provide emotional support. Patient is on 4L, course
breath sounds throughout, good air movement. He is sinus rhythm on monitor, no edema. He is using urinal at bedside to boid, has good appetite, will order breakfast. Skin WNL, intact. He has a right AC, currently medlocked. Will review
orders, call garcia within reach.
--- NOTE | 2023-11-15 08:12 | W.PN.INTV ---
Today's Communication / Plan
Recommendations
Abx as per ID
Follow up HIV VL
Follow up surveillance blood Cx given (+) BCx seen on 11/13/2023
Up OOB as tolerated
Maintain SpO2>90-94%
Patient is stable for transfer out of ICU to telemetry. Music Store Manager/pulmonary service will now sign off. Please reconsult if there are any additional questions/concerns, or if patient's respiratory status deteriorates.
Assessment
-
Assessment: 58-year-old M with PMHx of HIV/AIDS who p/w SOB. Patient is unaware of his past medical history or medications that he supposed to be on. Poor historian. He called 911 at home due to shortness of breath. He also says that he was
recently hospitalized at [facility] in [place], [place] about 2 months ago where he was diagnosed with lymphoma. When asked if he had a biopsy done he said no that it was all diagnosed via imaging - per ID documentation the pt had a RML lung
nodule that was Bx showing DLBCL. He also said that he was treated for pneumonia at that time. In ER he developed worsening respiratory distress requiring BiPAP, and was hypotensive. Pt TRX here for further care with critical care services
consulted for further evaluation.
Chronic conditions PARK WORKER SUPERVISOR: HIV, tobacco use disorder
Impression:
#L-sided CAP in setting of HIV/AIDS
#HIV/AIDS reportedly on Biktarvy as an outpatient (CD4 count 108 as of 11/14/2023)
#+MRSA via nasal screen
#Hypotension (unclear what his baseline BP is) - resolved
#Gram-negative cocco-bacilli bacteremia due to Haemophilus influenza (seen on BCx from 11/13/2023)
#Hypoalbuminemia
#Recently Dx DLBCL via RML nodule biopsy
Plan:
- Continue broad spectrum ABx as per ID --> currently on rocephin + doxy + IV vanco
- Check sputum Cx and send for silver stain to r/o PCP PNA
- Follow up HIV viral load
- Maintain SpO2 >90-94%
- Maintain MAP>65
- obtain outside hospital medical records where he was Dx with pneumonia and lymphoma recently
- Replete electrolytes with K>4, Mg>2
- Maintain euglycemia with goal BG 140-180
- prn nebulized bronchodilators
- prn anti-tussants with codeine cough syrup
- Incentive spirometer
- Eventual outpatient follow up with Oncology
- DVT ppx
Patient is stable for transfer out of ICU to telemetry. Music Store Manager/pulmonary service will now sign off. Thank you for allowing us to be involved in the care of this patient. Please reconsult if there are any additional questions/concerns, or if
patient's respiratory status deteriorates.
Total time spent today was 55 minutes for this encounter. Time includes reviewing laboratory test/imaging results, reviewing pertinent medical records, obtaining and reviewing medical history, performing an appropriate exam, ordering medications,
tests and procedures. Time also includes documentation of this encounter, coordinating patient care and communicating with other healthcare professionals. Total time does not include separately billed tests performed on this date of service.
Data:
CXR 11-13-2023: Moderately extensive left perihilar pneumonia
Subjective Dataa
Subjective Data
Date of Service:
Date of Service: November 15, 2023
Chief Complaint: Music Store Manager Follow Up
Subjective:
Pt seen this AM. Sitting in chair. HR 74, BP 99/65, SpO2 98% on 4L/min. Anxious about his diagnosis of lymphoma. He denies chest pain, headache, abdominal pain, fevers or chills.
Review of Systems
General: Other (Negative unless mentioned above)
Objective Data
Data Reviewed
Vital Signs / I&O / Oxygen:
Vital Signs
Temp Pulse Resp BP Pulse Ox
97.5 F 78 21 95/64 95
11/15/23 11:44 11/15/23 11:15 11/15/23 01:08 11/15/23 11:15 11/15/23 11:15
Intake and Output
11/14/23 11/15/23 11/16/23
06:59 06:59 06:59
Intake Total 4130.0 / 4330.0 4200 / 4200 900 / 900
Output Total 1050 / 1050 1750 / 1750 300 / 300
Balance 3080.0 / 3280.0 2450 / 2450 600 / 600
SaO2 95
Nasal Cannula flow liters per 4
minute
Physical Exam
HEENT: Normocephalic, Anicteric and Moist Mucous Membranes
Cardiovascular: S1-S2 and Peripheral Edema (Negative)
Respiratory: Wheeze (Negative), Crackles (Negative), Rhonchi (left hemithorax) and Accessory Resp Muscle Use (Negative)
GI: Soft, Non Distended, Non Tender and Normal Bowel Sounds
Neurology: AO x 3
Skin: Warm, Dry and Jaundice (Negative)
Labs/Micro/Reports
Lab Data
11/15/23 02:23
11/15/23 02:23
Microbiology
11/14/23 14:14 Sputum Respiratory Culture - Preliminary
Usual Respiratory Sia
11/14/23 14:14 Sputum Gram Stain - Preliminary
11/14/23 00:21 Urine Legionella Urinary Antigen - Final
Negative for Legionella pneumophila Serogroup 1 antigen.
A negative result does not rule out the possiblity of
Legionella infection due to other serogroups or species of
Legionella. Clinical correlation is recommended.
11/14/23 00:21 Urine Streptococcus pneumoniae Antigen (M - Final
Negative for Streptococcus pneumoniae antigen.
A negative result does not exclude infection with
Streptococcus pneumoniae. Clinical correlation is
recommended.
11/13/23 12:52 Blood/Venous Blood Culture - Preliminary
Positive culture in progress
11/13/23 12:52 Blood/Venous Gram Stain - Preliminary
11/13/23 12:51 Blood/Venous Blood Culture - Preliminary
Positive culture in progress
11/13/23 12:51 Blood/Venous Gram Stain - Preliminary
11/13/23 23:38 Nose Nasal Screen MRSA (PCR) - Final
Staph aureus MRSA
11/13/23 12:51 Nasal Swab Influenza Types A & B (АЛЕКСАНДР) - Final
Negative for Influenza A & B, NAAT
Negative results must be combined with clinical observations
and patient history.
Nucleic Acid Amplification test (NAAT)performed on the
[employer] platform.
--- NOTE | 2023-11-15 09:10 | W.PN.ID1 ---
Date of Service
Date of Service: November 15, 2023
Today's Communication
Continue current abx's.
Repeat blood cx's.
Assessment / Plan
# GNR coccobacilli bacteremia - ?lung source, ? haemophilus
# Left pneumonia with acute hypoxemic respiratory failure, decreasing oxygen requirement.
(second PNA within 2 months)
# Sepsis with fever, leukocytosis- resolving
# HIV h/o noncompliance. Now follows at [facility]. CD4 88 (10/04/23). On Biktarvy since 09/2023.
# Recent diagnosis of large B cell lymphoma from right lung nodule biopsy. Not on treatment yet.
# MRSA colonized.
- Await identification of organism in blood cultures.
- Repeat blood cultures pending
- sputum cx prelim: usual resp gian
- Evaluating for Pneumocystis PNA
induced-sputum for Pneumocystis DFA with reflex to PCR, pending
Fungitell pending. If negative, helpful. If positive, possible false positive from recent Zosyn
- Continue ceftriaxone and doxycycline.
-Continue Vancomycin IV (MRSA screen positive).
- Continue Biktarvy.
#Additional Past Medical History:
HIV Dx'd 2019, noncompliant. On Biktarvy since 09/2023
Syphilis treated with IM Bicillin L-A x 2018.
Recent dx of large B cell lymphoma
Chief Complaint
-: Clinical Sepsis, Pneumonia and Bacteremia
Subjective / Review of Systems
Cough is not better. Still feels poorly.
Vital Signs / Physical Exam
Vital Signs
Vital Signs
Temp Pulse Resp BP Pulse Ox
97.9 F 74 21 87/66 96
11/15/23 08:13 11/15/23 05:00 11/15/23 01:08 11/15/23 05:00 11/15/23 05:00
Physical Exam
Constitutional: No Acute Distress
Cardiovascular: Regular Rate and S1/S2
Pulmonary: Coarse (left)
Gastrointestinal: Soft, Non Tender and Non Distended
Genito-Urinary: Negative CVA Tenderness
Extremities: Negative Edema
Neurological: AO x 3
Objective Data
Lab Data
Lab Results
11/15/23 02:23
11/15/23 02:23
PT 16.9 Sec (11.4-14.6) H 11/14/23 00:27
INR 1.39 11/14/23 00:27
APTT 23.6 Sec (23.4-35.0) 11/14/23 00:27
Estimated Creat Clear 95 ml/min 11/15/23 02:23
Lactic Acid Cancelled 11/13/23 20:56
Total Bilirubin 1.2 mg/dl (0.2-1.3) 11/14/23 04:14
AST 21 U/L (17-59) 11/14/23 04:14
ALT 11 U/L (0-50) 11/14/23 04:14
Alkaline Phosphatase 66 U/L (38-126) 11/14/23 04:14
Most recent labs reviewed.
Micro Results:
11/14/23 14:14 Respiratory Culture - Preliminary
Sputum Usual Respiratory Gina
Gram Stain - Preliminary
11/14/23 16:57 Blood Culture - Pending
Blood/Venous
11/14/23 16:19 Blood Culture - Pending
Blood/Venous
11/14/23 00:21 Legionella Urinary Antigen - Final
Urine Negative for Legionella pneumophila Serogroup 1 antigen.
A negative result does not rule out the possiblity of
Legionella infection due to other serogroups or species of
Legionella. Clinical correlation is recommended.
Streptococcus pneumoniae Antigen (M - Final
Negative for Streptococcus pneumoniae antigen.
A negative result does not exclude infection with
Streptococcus pneumoniae. Clinical correlation is
recommended.
11/13/23 12:52 Blood Culture - Preliminary
Blood/Venous Positive culture in progress
Gram Stain - Preliminary
11/13/23 12:51 Blood Culture - Preliminary
Blood/Venous Positive culture in progress
Gram Stain - Preliminary
11/13/23 23:38 Nasal Screen MRSA (PCR) - Final
Nose Staph aureus MRSA
11/13/23 12:51 Influenza Types A & B (АЛЕКСАНДР) - Final
Nasal Swab Negative for Influenza A & B, NAAT
Negative results must be combined with clinical observations
and patient history.
Nucleic Acid Amplification test (NAAT)performed on the
[employer] platform.
CXR: Moderately extensive left perihilar pneumonia
[2023-11-15] MEDS: NSS 1000 IV (10:22)
--- NOTE | 2023-11-15 10:44 | PHA.VAN.FU ---
Vancomycin Assessment / Plan
- Assessment
Renal Function: SCR Decreasing
WBC's are: WNL
Concomitant Antimicrobials: ceftriaxone, doxycycline
- Assessment - Therapeutic Drug Monitoring
Random Level: 7.2 - drawn ~15H after previous dose of 750mg
- Dosing Plan
Adjust Regimen to: Vanc 1000mg Q12H - first dose now then 1800 since level low
New Regimen Predicts: AUC (424), Peak (26.3), Trough (11)
- Monitoring Plan
No level(s) ordered at this time: consider levels in next few days
Monitoring Comments: may require further dose adjustment
- Follow Up
Pharmacy will continue to follow.
Vancomycin Follow UP
- -
Patient Age: 58
Patient Sex: Male
Vancomycin Day #: 3
Indication: Pulmonary/Respiratory
Requesting Provider: Dr Ventura
Pertinent Antimicrobial Allergies:
no pertinent allergies
Height / Weight:
Height 5 ft 8 in
Actual Weight 86.3 kg
Adjusted BW in k.8
Pertinent Past Medical History: HIV,
- Vital Signs / Lab Results
Temp Pulse Resp BP Pulse Ox
97.9 F 79 21 103/75 97
11/15/23 08:13 11/15/23 09:00 11/15/23 01:08 11/15/23 09:00 11/15/23 08:00
Lab Results - Hematology
11/13/23 11/14/23 11/15/23
12:51 04:14 02:23
WBC 15.7 H 12.5 H 7.1
Lab Results - Chemistry
11/13/23 11/14/23 11/15/23
12:51 04:14 02:23
BUN 23 H 26 H 24 H
Creatinine 1.3 1.1 0.8
Estimated Creat Clear 58 69 95
Albumin 3.7 2.8 L
0411/13/23 11/13/23
12:51 17:13 20:56
Lactic Acid 3.1 H 1.8 Cancelled
Microbiology Results
11/14/23 14:14 Respiratory Culture - Preliminary
Sputum Usual Respiratory Sia
Gram Stain - Preliminary
11/14/23 00:21 Legionella Urinary Antigen - Final
Urine Negative for Legionella pneumophila Serogroup 1 antigen.
A negative result does not rule out the possiblity of
Legionella infection due to other serogroups or species of
Legionella. Clinical correlation is recommended.
Streptococcus pneumoniae Antigen (M - Final
Negative for Streptococcus pneumoniae antigen.
A negative result does not exclude infection with
Streptococcus pneumoniae. Clinical correlation is
recommended.
11/13/23 12:52 Blood Culture - Preliminary
Blood/Venous Positive culture in progress
Gram Stain - Preliminary
11/13/23 12:51 Blood Culture - Preliminary
Blood/Venous Positive culture in progress
Gram Stain - Preliminary
11/13/23 23:38 Nasal Screen MRSA (PCR) - Final
Nose Staph aureus MRSA
11/13/23 12:51 Influenza Types A & B (АЛЕКСАНДР) - Final
Nasal Swab Negative for Influenza A & B, NAAT
Negative results must be combined with clinical observations
and patient history.
Nucleic Acid Amplification test (NAAT)performed on the
[employer] platform.
Therapeutic Drug Monitoring
Random Vancomycin 7.2 ug/ml 11/15/23 02:23
--- NOTE | 2023-11-15 10:58 | CM ---
CM following re: discharge planning.
Reviewed pt's chart, met with pt.
Pt is a 58 year old male, admitted with primary dx of Clinical Sepsis, Pneumonia and Bacteremia.
Pt reports he lives alone in a mobile home, has no immediate family, has friend Destin, works as a cashier parking lot at [employer]. Pt went to tears stating he has to start chemotherapy, expressed passive wishes related to his current health
condition and new d/x of lymphoma. Pt stated 'I have no reason to live, I will anyway I am not sure why I have to get treatment if I anyway'. Emotional support with reassurance offered and provided.
CM discussed advance directives and pt expressed his interest to have information. A copy of AD with additional information provided to the pt.
Psychiatry consult requested.
PCP: Anabela Marley
Pharmacy: Pt stated he uses online pharmacy only and if he needs to have retail pharmacy he will prefer [facility].
D/C plan: home with anticipated no VN needs.
CM will follow with discharge plan updates as hospitalization progresses
[2023-11-15] MEDS: VANCOCIN 200 IV ×2 (11:15→17:37)
--- NOTE | 2023-11-15 12:22 | PTCARENOTE ---
No change in patient's assessment. Patient now sitting in chair at bedside, vanco infusing. hospitalist started IVF, will sent urine when patient voids. Called lab to see if PCP PNA has been sent out or if another sample has to be collected.
[2023-11-15] MEDS: ROCEPHIN 2000 MG IV (13:50)
[2023-11-15] MEDS: STERILE WATER FOR INJECTION 20 ML IV (13:50)
[2023-11-15 14:04] LABS: Urine Albumin Negative (Neg - Trace); Urine Bilirubin Negative (Negative); Urine Character Clear (Clear); Urine Color Yellow; Urine Glucose Negative (Negative); Urine Ketone Negative (Negative); Urine Leukocyte Negative (Negative); Urine Nitrite Negative (Negative); Urine Occult Blood Trace (Negative); Urine Urobilinogen Negative (Neg - 1+)
[2023-11-15 14:16] LABS: Urine Red Blood Cell 0-2 /HPF (0-2); Urine White Cell 0-2 /HPF (0-5)
[2023-11-15 16:35] LABS: CD4 % of Cells Analyzed 8 % (32-64); CD4 Absolute Count 108 cells/uL (430-1800)
--- NOTE | 2023-11-15 17:10 | W.PN.HOSP.TC ---
Addendum entered and electronically signed by Ayo Macedo MD 11/15/23 20:55:
Attending Addendum-
I saw and evaluated the patient. I reviewed the resident�s note and agree with findings and plan as documented in the resident�s note. 'im not worth all this fuss.' feels fatigued and denies sob. Full 12 point ROS reviewed and negative except as
documented gen NAD heart RRR lungs b/l LL rhonchi LLL abd soft LE no edema Plan:
# Sepsis secondary to PNA- ID input appreciated cont azithro vanco and doxy, cont to monitor closely check CD4 counts repeat labs in am
# H flu bacteremia- cont current abx may be able to titrate once sensitivities back cont to monitor closely r/o GC and chlamydia fungal cx pend ID on board
# Septic Shock- resolved no need for pressors cont to monitor
# Acute Hypoxemic Respiratory Failure- wean o2 for sats > 94%
# Acidosis- cont to monitor repeat BMP in am check ABG
# HIV/AIDS- check CD4 counts cont meds ID on board
# HIV Lymphoma- f/u heme onc as OP
Dispo Transfer to tele
Time spent coordinating care, review of plan of care with resident, review of records, med rec, consults, notes, labs, rads, d/w nursing and ICU� 59 mins
Original Note:
Today's Communication/Plan
-
Continue IV antibiotics, per ID management
Assessment / Plan
Assessment / Plan
Acute hypoxemic respiratory failure:
Secondary to pneumonia
CXR 11/12: Moderately extensive left perihilar pneumonia
- Repeat ABGs marked improvement
- IV fluids stopped
- Hypoxemia improved. Currently O2 sat 95% on 4L nasal cannula. Wean O2 as tolerated
- incentive spirometry
Sepsis:
Secondary to pneumonia in immunocompromized patient.
- Leukocytosis resolved 15.7 -->12.5 --> 7.1 today
- Sputum Cx grew usual respiratory gina
- Blood cultures from 11/12 grew hemophilus influenzae
- Repeat Blood cultures no growth in 24 hours
- Continue Vancomycin, Ceftriaxone, Doxycycline
- ID on board
- Acapella respiratory device
- Vitals stable. Okay to downgrade to telemetry.
HIV:
On Biktarvy daily
- Continue Biktarvy
- CD4 counts pending
- STD labs Gonorrhea and chlamydia PCR negative
Large B-cell lymphoma
Recent diagnosis. Not on chemotherapy
- Consider outpatient hemonc follow up
Hyponatremia:
- Resolved with fluids
Hypokalemia:
- Repleted
BUN/Cr elevated:
- Cr improved
DVT prophylaxis: SCDs
Code status: Full code
Anticipated Discharge: > 48 hours
Subjective/Interval History
-
Date of Service: November 15, 2023
Objective Data
-
Labs:
Laboratory Results
11/15/23
16:47
HCO3 Pending
Vital Signs:
Vital Signs
Temp Pulse Resp BP Pulse Ox
98.5 F 81 15 110/71 99
11/15/23 15:45 11/15/23 16:00 11/15/23 16:00 11/15/23 16:00 11/15/23 16:00
I&O
11/14/23 11/15/23 11/16/23
06:59 06:59 06:59
Intake Total 4130.0 / 4330.0 4200 / 4200 1765 / 1765
Output Total 1050 / 1050 1750 / 1750 300 / 300
Balance 3080.0 / 3280.0 2450 / 2450 1465 / 1465
Review of Systems
-
History Source: Patient
Constitutional: Reports Other (malaise)
Respiratory: Reports Cough
Cardiac: Denies Chest Pain, Palpitations or Syncope
Abdomen/GI: Reports No Symptoms
Genitourinary: Reports No Symptoms; Denies Dysuria or Difficulty Voiding
Neuro: Reports No Symptoms; Denies Dizzy, Headache or Lightheadedness
Physical Exam
-
General: Conversant and Other
HEENT: Normocephalic
Respiratory: Wheezes (mild, inspiratory, left sided), Crackles (bilateral ) and Non Labored Respirations
Cardiac: Regular Rhythm and S1/S2; Negative Murmur or Rub
Musculoskeletal: No Clubbing, No Cyanosis and No Edema
Skin: Warm and Dry; Negative Rash or Lesions
Neuro: Awake, Alert and Oriented
Psych: Calm
[2023-11-15] MEDS: LOVENOX 40 MG SC (17:34)
[2023-11-15] MEDS: ROBITUSSIN AC 5 ML PO (17:34)
[2023-11-15 18:28] LABS: B.E. -2.8 mmol/L; HCO3 21.9 mmol/L (21-28); O2 Saturation % 99.3 % (94-98); PCO2 37 mmHg (35-48); PO2 127 mmHg (83-108); pH 7.38 (7.35-7.45)
[2023-11-15] MEDS: DUONEB 3 ML INH (20:28)
[2023-11-15] MEDS: PULMICORT 0.25 MG INH (20:28)
--- NOTE | 2023-11-15 21:02 | PTCARENOTE ---
Received patient AAOx3, following commands, denying pain. Flat affect, withdrawn. Normal sinus/sinus tach, 90s-100s. BP stable, 90s-110s/60s-80s. No edema, palpable radial and pedal pulses bilaterally. On 4 liters nasal cannula, lung sounds coarse
throughout. Nonproductive cough, occasional, no suctioning required. Urinal or walks to bathroom. Skin intact. Right AC #18, NSS gtt infusing at 125 mls, patent, WNL. Call garcia within reach.
[2023-11-16] VITALS (13 sets, daily range): BP systolic 93–128; BP diastolic 46–80; BMI 30.2
[2023-11-16] MEDS: VANCOCIN 200 IV (05:22)
[2023-11-16] MEDS: NSS 1000 IV (05:26)
[2023-11-16 05:47] LABS: % Basophils 0.2 % (0-2); % Eosinophils 0.7 % (0-6); % Immature Granulocytes 1.1 % (0-0.5); % Lymphocytes 26.2 % (20.5-51.1); % Monocytes 16.8 % (1.7-9.3); Absolute Immature Granulocytes 0.1 10^3/uL (0-0.05); Absolute Lymphocytes 1.2 10^3/uL (1.2-3.4); Absolute Monocytes 0.8 10^3/uL (0.1-0.6); Absolute Neutrophils 2.5 10^3/uL (1.4-6.5); Hematocrit 29.4 % (39.0-52.0); Hemoglobin 9.8 g/dL (13.0-18.0); Mean Corp Hgb Conc. 33.3 g/dL (33.0-37.0); Mean Platelet Volume 10.3 fL (7.4-10.4); Nucleated Red Blood Cells % 0 % (-); Platelet Count 236 10^3/uL (130-400); Red Blood Cell Count 3.38 10^6/uL (4.70-6.10); Red Cell Dist. Width 21.4 % (11.5-14.5); White Blood Cell Count 4.5 10^3/uL (4.8-10.8)
--- NOTE | 2023-11-16 05:47 | PTCARENOTE ---
Labs sent, linens changed. Patient washing self up in bathroom. Otherwise patient assessment unchanged from previous. Call garcia within reach.
[2023-11-16 06:44] LABS: ALT (SGPT) 13 U/L (0-50); AST (SGOT) 18 U/L (17-59); Albumin 2.6 g/dl (3.5-5.0); Alkaline Phosphatase 54 U/L (38-126); Blood Urea Nitrogen 16 mg/dl (9-20); Calcium 8.6 mg/dl (8.4-10.2); Carbon Dioxide 19 mmol/L (22-30); Chloride 114 mmol/L (98-107); Estimated Creatinine Clearance 122 ml/min; Glucose 94 mg/dl (70-99); Magnesium 1.6 mg/dl (1.6-2.3); Potassium 3.8 mmol/L (3.5-5.1); Sodium 139 mmol/L (135-145); Total Bilirubin 0.3 mg/dl (0.2-1.3); Total Protein 5.2 g/dl (6.3-8.2); eGFR > 60.00
[2023-11-16] MEDS: PULMICORT 0.25 MG INH ×2 (07:06→20:24)
[2023-11-16] MEDS: DUONEB 3 ML INH ×4 (07:06→20:24)
--- NOTE | 2023-11-16 08:00 | PTCARENOTE ---
Received PT AAOx3, following commands, Flat affect, withdrawn. Normal sinus/sinus tach,No edema, palpable radial and pedal pulses bilaterally. On 4 liters nasal cannula, lung sounds coarse throughout. Nonproductive cough, occasional, no suctioning
required.PT STEEL to bathroom and back PT removed O2, explained the O2 has a long enough tubing to reach bathroom. Skin intact. Right AC #18, NSS gtt infusing at 125 mls, patent, WNL. PT on Telepack, able to walk to bathroom, Call garcia within reach.
[2023-11-16] MEDS: BIKTARVY 50-200-25 MG TABLET 1 TABLET PO (08:17)
[2023-11-16] MEDS: VIBRAMYCIN 100 MG PO (08:17)
--- NOTE | 2023-11-16 09:09 | PN.CDI ---
CDI
- -
CDI:
Physician Documentation Request
Admit Date: 11/13/23 16:43
Dear Doctor,
Please review the following and provide your response in the progress notes.
Clinical Indicators:
Pt admitted with sepsis 2/2 PNA/ Septic Shock/ Acute Hypoxic respiratory Failure /HIV/AIDS
Documented in H&P, ' BUN/Creat >20, likely from dehydration IV saline ...'
Progress note 11/14 , ' BUN/Cr elevated: Cr improved...'
Renal functions are below/Did get IVFs
11/13/23
12:51
Creatinine 1.3
11/14/23 11/15/23 11/16/23
04:14 02:23 05:37
Creatinine 1.1 0.8 0.7
Clarify which of the following accurately represents the patient's renal status:
CROW
Abnormal lab value only
Other
Criteria for CROW*
1 Increase in serum creatinine by > or = to 0.3 mg/dL (> or = to 26.5 micromol/L) within 48 hours, OR
2 Increase in serum creatinine to > or = to 1.5 times baseline, which is known or presumed to have occurred within 7 days, OR
3 Urine volume < 0.5 nL/kg/hour for six hours
Use of terms such as suspected, likely, concern for, or probable (associated with a specific diagnosis that is being evaluated, monitored, or treated as if it exists) are acceptable and can be coded in the inpatient setting, when documented at the
time of discharge.
Thank you,
Aye Degroot RN
CDI Specialist
[facility]
Please use your independent medical judgment in providing your response.
*Source: Kidney Disease: Improving Global Outcomes (KDIGO) 2012
--- NOTE | 2023-11-16 10:19 | PTCARENOTE ---
PT attempting to leave, explained that he needs to leave and hell come right back. Explained that he wasn't ready to leave the hospital just at this time, PT is adamant about running home, explained the reasons why he needed to stay in the "hospital, and PT doesn't like his 'bitter' nurse
--- NOTE | 2023-11-16 11:11 | PHA.VAN.FU ---
Vancomycin Assessment / Plan
- Assessment
Renal Function: SCR Decreasing
In the past 24 hrs, patient has been: Afebrile
Concomitant Antimicrobials: ceftriaxone, doxycycline
- Dosing Plan
Adjust Regimen to: Vanc 1500mg Q12H starting 1800 for continued improvement in SCR
New Regimen Predicts: AUC (568), Peak (38.7), Trough (12.7)
- Monitoring Plan
No level(s) ordered at this time: consider levels in next few days
- Follow Up
Pharmacy will continue to follow.
Vancomycin Follow UP
- -
Patient Age: 58
Patient Sex: Male
Vancomycin Day #: 4
Indication: Pulmonary/Respiratory
Requesting Provider: Dr Ventura
Pertinent Antimicrobial Allergies:
no pertinent antibiotic allergies
Height / Weight:
Height 5 ft 8 in
Actual Weight 90.2 kg
Adjusted BW in k.8
Pertinent Past Medical History: HIV, BMI ~30, Large B-cell lymphoma
- Vital Signs / Lab Results
Temp Pulse Resp BP Pulse Ox
98.6 F 87 20 114/71 95
11/16/23 08:02 11/16/23 08:00 11/16/23 08:00 11/16/23 08:00 11/16/23 08:00
Lab Results - Hematology
11/13/23 11/14/23 11/15/23
12:51 04:14 02:23
WBC 15.7 H 12.5 H 7.1
11/16/23
05:37
WBC 4.5 L
Lab Results - Chemistry
11/13/23 11/14/23 11/15/23
12:51 04:14 02:23
BUN 23 H 26 H 24 H
Creatinine 1.3 1.1 0.8
Estimated Creat Clear 58 69 95
Albumin 3.7 2.8 L
11/16/23
05:37
BUN 16
Creatinine 0.7
Estimated Creat Clear 122
Albumin 2.6 L
11/13/23 11/13/23 11/13/23
12:51 17:13 20:56
Lactic Acid 3.1 H 1.8 Cancelled
Lab Results - Urine
11/15/23
13:54
Urine Nitrite (Reflex) Negative
Leukocyte Esterase Rfl Negative
Microbiology Results
11/14/23 14:14 Respiratory Culture - Final
Sputum Usual Respiratory Sia
Gram Stain - Final
11/14/23 16:57 Blood Culture - Preliminary
Blood/Venous No Growth in 24 hours- Final report to follow
11/15/23 13:54 Chlamydia trachomatis (PCR) - Final
Urine Neisseria gonorrhoeae (PCR) - Final
11/14/23 16:19 Blood Culture - Preliminary
Blood/Venous No Growth in 24 hours- Final report to follow
11/13/23 12:52 Blood Culture - Preliminary
Blood/Venous Haemophilus influenzae
Gram Stain - Preliminary
11/13/23 12:51 Blood Culture - Preliminary
Blood/Venous Haemophilus influenzae
Gram Stain - Preliminary
11/14/23 00:21 Legionella Urinary Antigen - Final
Urine Negative for Legionella pneumophila Serogroup 1 antigen.
A negative result does not rule out the possiblity of
Legionella infection due to other serogroups or species of
Legionella. Clinical correlation is recommended.
Streptococcus pneumoniae Antigen (M - Final
Negative for Streptococcus pneumoniae antigen.
A negative result does not exclude infection with
Streptococcus pneumoniae. Clinical correlation is
recommended.
11/13/23 23:38 Nasal Screen MRSA (PCR) - Final
Nose Staph aureus MRSA
Therapeutic Drug Monitoring
Random Vancomycin 7.2 ug/ml 11/15/23 02:23
--- NOTE | 2023-11-16 11:41 | PTCARENOTE ---
PT refusing any needs at this time, PT just wants to sleep, assessment remains unchanged
--- NOTE | 2023-11-16 13:00 | W.PN.ID1 ---
Date of Service
Date of Service: November 16, 2023
Today's Communication
See below.
Assessment / Plan
# Haemophilus bacteremia - lung source
# Left pneumonia with acute hypoxemic respiratory failure, decreasing oxygen requirement.
(second PNA within 2 months)
# AIDS. CD4 108 (8%). h/o noncompliance. Now follows at [facility]. On Biktarvy since 09/2023.
# Recent diagnosis of large B cell lymphoma from right lung nodule biopsy. Not on treatment yet.
# s/p Sepsis
# MRSA colonized.
- Repeat blood cultures neg to date.
- sputum cx : usual resp gina
- Evaluating for Pneumocystis PNA
Induced-sputum for Pneumocystis DFA with reflex to PCR, pending
Fungitell pending. If negative, helpful. If positive, possible false positive from recent Zosyn
- IF PJP ruled out, start prophylactic Bactrim DS 1 tab daily.
- Continue ceftriaxone.
-Discontinue Vancomycin IV and po doxycycline.
- Continue Biktarvy.
#Additional Past Medical History:
HIV Dx'd 2019, noncompliant. On Biktarvy since 09/2023
Syphilis treated with IM Bicillin L-A x 2018.
Recent dx of large B cell lymphoma
Chief Complaint
-: Clinical Sepsis, Pneumonia and Bacteremia
Subjective / Review of Systems
SOB/cough better today.
Vital Signs / Physical Exam
Vital Signs
Vital Signs
Temp Pulse Resp BP Pulse Ox
98.1 F 87 20 114/71 95
11/16/23 11:34 11/16/23 08:00 11/16/23 08:00 11/16/23 08:00 11/16/23 08:00
Physical Exam
Constitutional: No Acute Distress
Cardiovascular: Regular Rate and S1/S2
Pulmonary: Rales (left lung crackles)
Gastrointestinal: Soft, Non Tender and Non Distended
Genito-Urinary: Negative CVA Tenderness
Extremities: Negative Erythema
Neurological: AO x 3
Objective Data
Lab Data
Lab Results
11/16/23 05:37
11/16/23 05:37
PT 16.9 Sec (11.4-14.6) H 11/14/23 00:27
INR 1.39 11/14/23 00:27
APTT 23.6 Sec (23.4-35.0) 11/14/23 00:27
Estimated Creat Clear 122 ml/min 11/16/23 05:37
Lactic Acid Cancelled 11/13/23 20:56
Total Bilirubin 0.3 mg/dl (0.2-1.3) 11/16/23 05:37
AST 18 U/L (17-59) 11/16/23 05:37
ALT 13 U/L (0-50) 11/16/23 05:37
Alkaline Phosphatase 54 U/L (38-126) 11/16/23 05:37
Most recent labs reviewed.
Micro Results:
11/14/23 14:14 Respiratory Culture - Final
Sputum Usual Respiratory Gina
Gram Stain - Final
11/14/23 16:57 Blood Culture - Preliminary
Blood/Venous No Growth in 24 hours- Final report to follow
11/15/23 13:54 Chlamydia trachomatis (PCR) - Final
Urine Neisseria gonorrhoeae (PCR) - Final
11/14/23 16:19 Blood Culture - Preliminary
Blood/Venous No Growth in 24 hours- Final report to follow
11/13/23 12:52 Blood Culture - Preliminary
Blood/Venous Haemophilus influenzae
Gram Stain - Preliminary
11/13/23 12:51 Blood Culture - Preliminary
Blood/Venous Haemophilus influenzae
Gram Stain - Preliminary
11/14/23 00:21 Legionella Urinary Antigen - Final
Urine Negative for Legionella pneumophila Serogroup 1 antigen.
A negative result does not rule out the possiblity of
Legionella infection due to other serogroups or species of
Legionella. Clinical correlation is recommended.
Streptococcus pneumoniae Antigen (M - Final
Negative for Streptococcus pneumoniae antigen.
A negative result does not exclude infection with
Streptococcus pneumoniae. Clinical correlation is
recommended.
11/13/23 23:38 Nasal Screen MRSA (PCR) - Final
Nose Staph aureus MRSA
11/13/23 12:51 Influenza Types A & B (АЛЕКСАНДР) - Final
Nasal Swab Negative for Influenza A & B, NAAT
Negative results must be combined with clinical observations
and patient history.
Nucleic Acid Amplification test (NAAT)performed on the
[employer] platform.
CXR: Moderately extensive left perihilar pneumonia
--- NOTE | 2023-11-16 13:07 | PTCARENOTE ---
PT asked for help getting OOB to chair, PT was independent to chair with supervision, PT remains flat without much emotion, and just wants to be left alone, does state that he feels depressed, denies any needs at this time
[2023-11-16] MEDS: NSS IV (13:59)
[2023-11-16] MEDS: STERILE WATER FOR INJECTION 20 ML IV (13:59)
[2023-11-16] MEDS: ROCEPHIN 2000 MG IV (13:59)
--- NOTE | 2023-11-16 15:53 | PTCARENOTE ---
Report given to 3rd floor RN, waiting for room to be cleaned then PT to be transported to [facility], packing up all of PT's belongings
--- NOTE | 2023-11-16 16:08 | W.PN.HOSP.TC ---
Addendum entered and electronically signed by Ayo Macedo MD 11/16/23 22:45:
Attending Addendum-
I saw and evaluated the patient. I reviewed the resident�s note and agree with findings and plan as documented in the resident�s note. denies SI or HI, complain sof diarrhea. Full 12 point ROS reviewed and negative except as documented gen NAD
heart RRR lungs b/l LL rhonchi LLL abd soft LE no edema Plan:
# Sepsis secondary to PNA- ID input appreciated dc doxy and vanco cont rocephin, blood cx pos for h flu, cont to monitor closely, r/o PCP- results-P fungitell-P, MRSA colonized
# H flu bacteremia- cont rocephin ID on board
# Leukopenia- cont to monitor repeat CBC in am likely due to immunosuppression/sepsis
# Septic Shock- resolved no need for pressors cont to monitor
# Diarrhea- AIDs- r/o crypto cont to monitor
# Tobacco Abuse- counselled to quit cont sophia patch
# H/O Etoh Abuse- encouraged to continue current path of sobriety
# Acute Hypoxemic Respiratory Failure- wean o2 for sats > 94%
# Met Acidosis- improving, cont to monitor repeat BMP in am, reviewed ABG
# AIDS- CD4 counts 108 (8%) cont biktarvy if neg for PCP will need bactrim proph as OP
# HIV Lymphoma- f/u heme onc as OP
Dispo Transfer to tele
Time spent coordinating care, review of plan of care with resident, review of records, med rec, consults, notes, labs, rads, d/w nursing� 61 mins
Original Note:
Today's Communication/Plan
-
Continue Biktarvy
Continue IV Ceftriaxone
Wean O2 as tolerated
Assessment / Plan
Assessment / Plan
Acute hypoxemic respiratory failure:
Secondary to pneumonia
CXR 11/12: Moderately extensive left perihilar pneumonia
- Repeat ABGs marked improvement
- IV fluids stopped
- Hypoxemia improved. Currently O2 sat 95% on 4L nasal cannula. Wean O2 as tolerated
- incentive spirometry
Sepsis:
Secondary to pneumonia in immunocompromized patient. Haemophilus influenzae bacteremia
- Leukocytosis resolved 15.7 -->12.5 --> 7.1 today
- Sputum Cx grew usual respiratory gina
- Repeat Blood cultures no growth in 24 hours
- Continue Ceftriaxone. Doxycycline and Vancomycin discontinued
- ID on board
- Acapella respiratory device
AIDS:
CD4 count 108 (8%). On Biktarvy daily since HIV diagnosis since 09/2023. Hx of nonadherence to regimen
- Continue Biktarvy
- Fungitell and PJ labs pending
- STD labs Gonorrhea and chlamydia PCR negative
Large B-cell lymphoma
Recent diagnosis. Not on chemotherapy
- Consider outpatient hemonc follow up
Diarrhea:
x1 week. CD4 count <200
- Giardia/Cryptosporidium fecal stool/ova labs sent
- Probiotic started
Hyponatremia:
- Resolved with fluids
Hypokalemia:
- Repleted
BUN/Cr elevated:
- Cr improved
DVT prophylaxis: SCDs
Code status: Full code
Anticipated Discharge: > 48 hours
Subjective/Interval History
-
Date of Service: November 16, 2023
Objective Data
-
Labs:
Laboratory Results
11/16/23
05:37
WBC 4.5 L
Hgb 9.8 L
Hct 29.4 L
Plt Count 236
Sodium 139
Potassium 3.8
Chloride 114 H
Carbon Dioxide 19 L
BUN 16
Creatinine 0.7
Glucose 94
Calcium 8.6
Total Bilirubin 0.3
AST 18
ALT 13
Alkaline Phosphatase 54
Vital Signs:
Vital Signs
Temp Pulse Resp BP Pulse Ox
98.1 F 85 18 114/71 97
11/16/23 15:11 11/16/23 15:05 11/16/23 15:05 11/16/23 08:00 11/16/23 15:05
I&O
11/15/23 11/16/23 11/17/23
06:59 06:59 06:59
Intake Total 4200 / 4200 4510 / 4510 250 / 250
Output Total 1750 / 1750 1000 / 1000 300 / 300
Balance 2450 / 2450 3510 / 3510 -50 / -50
Review of Systems
-
History Source: Patient
Constitutional: Reports No Symptoms
Respiratory: Reports Cough; Denies Trouble Breathing
Cardiac: Reports No Symptoms; Denies Chest Pain, Diaphoresis, Palpitations, Syncope or Orthopnea
Abdomen/GI: Reports Diarrhea
Genitourinary: Reports No Symptoms; Denies Dysuria, Difficulty Voiding or Bleeding
Musculoskeletal: Reports Edema
Neuro: Denies Dizzy or Headache
Physical Exam
-
General: No Apparent Distress and Comfortable; Negative Pain or Fever
HEENT: Normocephalic, Atraumatic, Moist Mucous Membranes and Oxygen (2L nasal cannula)
Respiratory: Rhonchi (scattered), Crackles (bilateral lower lobes) and Non Labored Respirations; Negative Accessory Resp Muscle Use
Cardiac: Regular Rhythm and S1/S2; Negative Murmur, Rub, Calf Tenderness or JVD
Musculoskeletal: No Clubbing, No Cyanosis and No Edema
Skin: Warm, Dry and Normal Turgor; Negative Rash, Lesions or Jaundice
Neuro: Awake, Alert and Oriented
Psych: Calm
[2023-11-16] MEDS: VISBIOME 1 CAP PO (16:48)
--- NOTE | 2023-11-16 17:25 | W.PN.UPDATE ---
Update Note
Progress Note Update
58 yo M w/ pmhx of HIV/AIDS, presenting with low CD4 count, sepsis secondary to PNA w/ septic shock & acute hypoxemic respiratory failure, as well as recent dx of Large B cell lymphoma. Psychiatry consulted due to concerns of possible passive
wishes/depression.
Pt was quite upset with me when I told him I'm from psychiatry - refused to speak to me and was adamant that he is not depressed and has no need for a psychiatrist. Discussed with nursing staff and hospitalist, pt has not made any actively suicidal
statements but rather seems to be processing a recent difficult diagnosis and having an understandable response. Did tell pt that if anything changes and he feels like he's starting to struggle to tell staff, if any concerning behavior or
statements observed or pt changes his mind and is more open to talking, psychiatry can return at that point.
--- NOTE | 2023-11-16 18:05 | PTCARENOTE ---
Pt admitted to 3W at 1730 from ICU. Pt walked from wheelchair to bed. Assessment complete by this RN, placed on 2L NC. Pt complained of 'peeing blood'. RN went to room to evaluate. Patient had flushed urine, but there were two drops of blood on the
toilet seat. MD contacted to be made aware. Pt denies pain upon urination. Pt says the only blood he noticed was the 'two drops'.
[2023-11-16] MEDS: LOVENOX 40 MG SC (18:08)
[2023-11-17 03:47] VITALS: BP 125/75
[2023-11-17 04:03] LABS: HIV-1 Quan NAAT Interpretation Detected (Not Detected); HIV-1 Quant NAAT (copies/ml) 90 cpy/mL; HIV-1 Quant NAAT (log copy/mL) 1.95 log cpy/mL
[2023-11-17 06:50] LABS: % Basophils 0.5 % (0-2); % Eosinophils 0.8 % (0-6); % Immature Granulocytes 1.6 % (0-0.5); % Lymphocytes 26.5 % (20.5-51.1); % Monocytes 14.5 % (1.7-9.3); % Neutrophils 56.1 % (42.2-75.2); Absolute Eosinophils 0.1 10^3/uL (0-0.7); Absolute Immature Granulocytes 0.1 10^3/uL (0-0.05); Absolute Lymphocytes 1.6 10^3/uL (1.2-3.4); Absolute Monocytes 0.9 10^3/uL (0.1-0.6); Absolute Neutrophils 3.4 10^3/uL (1.4-6.5); Hematocrit 32.5 % (39.0-52.0); Hemoglobin 10.8 g/dL (13.0-18.0); Mean Corp Hgb Conc. 33.2 g/dL (33.0-37.0); Mean Corpuscular Hgb 29.3 pg (27.0-31.0); Mean Corpuscular Volume 88.3 fL (80.0-94.0); Mean Platelet Volume 10.9 fL (7.4-10.4); Nucleated Red Blood Cells % 0 % (-); Platelet Count 288 10^3/uL (130-400); Red Blood Cell Count 3.68 10^6/uL (4.70-6.10); Red Cell Dist. Width 20.9 % (11.5-14.5); White Blood Cell Count 6.1 10^3/uL (4.8-10.8)
[2023-11-17 07:00] VITALS: BP 133/77
[2023-11-17 07:17] LABS: Blood Urea Nitrogen 10 mg/dl (9-20); Calcium 8.7 mg/dl (8.4-10.2); Carbon Dioxide 27 mmol/L (22-30); Chloride 110 mmol/L (98-107); Estimated Creatinine Clearance 122 ml/min; Glucose 91 mg/dl (70-99); Potassium 3.8 mmol/L (3.5-5.1); Sodium 139 mmol/L (135-145); eGFR > 60.00
[2023-11-17] MEDS: DUONEB 3 ML INH ×4 (07:46→19:36)
[2023-11-17] MEDS: PULMICORT 0.25 MG INH ×2 (07:46→19:36)
--- NOTE | 2023-11-17 08:10 | W.PN.HOSP.TC ---
Addendum entered and electronically signed by Ayo Macedo MD 11/17/23 22:29:
Attending Addendum-
I saw and evaluated the patient. I reviewed the resident�s note and agree with findings and plan as documented in the resident�s note. denies SI or HI, diarrhea resolved. complains of RUE swelling, Full 12 point ROS reviewed and negative except as
documented gen NAD heart RRR lungs b/l faint crackles abd soft RUE edema pulses intact Plan:
# Sepsis secondary to PNA- ID input appreciated dc doxy and vanco cont rocephin, blood cx pos for h flu, cont to monitor closely, r/o PJP- results-P fungitell-negative, MRSA colonized
# H flu bacteremia- cont rocephin ID on board DC on augmentin -> 11/21
# Leukopenia- resolved, cont to monitor repeat CBC in am likely due to immunosuppression/sepsis
# Septic Shock- resolved no need for pressors cont to monitor
# Diarrhea- resolved, crypto neg cont to monitor
# Tobacco Abuse- counselled to quit cont sophia patch
# H/O Etoh Abuse- encouraged to continue current path of sobriety
# Acute Hypoxemic Respiratory Failure- wean o2 for sats > 94% may need home 02
# Met Acidosis- resolved cont to monitor repeat BMP in am, reviewed ABG
# AIDS- CD4 counts 108 (8%) cont biktarvy if neg for PCP start bactrim proph
# HIV Lymphoma- f/u heme onc as OP
Dispo- DC home in am
Time spent coordinating care, review of plan of care with resident, review of records, med rec, consults, notes, labs, rads, d/w nursing� 55 mins
Original Note:
Today's Communication/Plan
-
Antibiotics day 5, continue
Follow RUE venous ultrasound
Discharge planning
Assessment / Plan
Assessment / Plan
Acute hypoxemic respiratory failure:
Secondary to pneumonia
CXR 11/12: Moderately extensive left perihilar pneumonia
- Repeat ABGs marked improvement
- Hypoxemia improved. Currently O2 sat 97% on 2L nasal cannula. Wean O2 as tolerated
- incentive spirometry
Sepsis:
Secondary to pneumonia in immunocompromized patient. Haemophilus influenzae bacteremia
- Leukocytosis resolved 15.7 --> 6.1
- Sputum Cx grew usual respiratory gina
- Repeat Blood cultures no growth
- ID on board
- Continue Ceftriaxone (day 5). Doxycycline and Vancomycin discontinued
- PJP Ppx started: Bactrim DS 1 tab daily
AIDS:
CD4 count 108 (8%). On Biktarvy daily since HIV diagnosis since 09/2023. Hx of nonadherence to regimen
- Continue Biktarvy
- Fungitell negative, PJP pending
- STD labs Gonorrhea and chlamydia PCR negative
RUE swelling:
- Venous US RUE ordered
Large B-cell lymphoma
Recent diagnosis. Not on chemotherapy
- Outpatient hemonc follow up
Diarrhea:
x1 week. CD4 count <200
- Giardia/Cryptosporidium fecal stool/ova negative
- resolving with proibiotics
Hyponatremia:
- Resolved with fluids
Hypokalemia:
- Repleted
BUN/Cr elevated:
- Cr improved
DVT prophylaxis: SCDs
Code status: Full code
Anticipated Discharge: Within 24 hours
Subjective/Interval History
-
Date of Service: November 17, 2023
Episode of gross hematuria once. Patient describes it as 'two drops of blood'. No hx of gross hematuria but has been told about blood in urine in the past after a urine sample.
Pt feels cough is improving. Complains of R upper extremity swelling
Objective Data
-
Labs:
Laboratory Results
11/17/23
06:06
WBC 6.1
Hgb 10.8 L
Hct 32.5 L
Plt Count 288 D
Sodium 139
Potassium 3.8
Chloride 110 H
Carbon Dioxide 27
BUN 10
Creatinine 0.7
Glucose 91
Calcium 8.7
Vital Signs:
Vital Signs
Temp Pulse Resp BP Pulse Ox
97.5 F 81 17 133/77 96
11/17/23 07:00 11/17/23 07:47 11/17/23 07:47 11/17/23 07:00 11/17/23 07:47
I&O
11/16/23 11/17/23 11/18/23
06:59 06:59 06:59
Intake Total 4510 / 4510 970 / 970
Output Total 1000 / 1000 300 / 300
Balance 3510 / 3510 670 / 670
Review of Systems
-
History Source: Patient
Constitutional: Reports No Symptoms
Respiratory: Reports Cough; Denies Trouble Breathing
Cardiac: Denies Chest Pain, Diaphoresis, Palpitations or Syncope
Abdomen/GI: Reports Diarrhea; Denies Abdominal Pain
Genitourinary: Reports Bleeding
Musculoskeletal: Denies Edema
Neuro: Reports No Symptoms
Physical Exam
-
General: No Apparent Distress and Comfortable; Negative Respiratory Distress
HEENT: Oxygen (O2 nasal cannula 2L)
Respiratory: Crackles (bilateral) and Non Labored Respirations
Cardiac: Regular Rhythm, S1/S2 and Calf Tenderness; Negative Murmur or Rub
GI: Soft and Nontender
Musculoskeletal: No Clubbing, No Cyanosis and Edema, Right Upper Extrem
Skin: Warm and Dry; Negative Rash or Lesions
Neuro: Awake, Alert and Oriented
Psych: Calm and Anxious
[2023-11-17] MEDS: VISBIOME 1 CAP PO (09:46)
[2023-11-17] MEDS: BIKTARVY 50-200-25 MG TABLET 1 TABLET PO (09:47)
[2023-11-17 11:00] VITALS: BP 128/71
[2023-11-17] MEDS: STERILE WATER FOR INJECTION 20 ML IV (12:15)
[2023-11-17] MEDS: ROCEPHIN 2000 MG IV (12:15)
--- NOTE | 2023-11-17 14:40 | W.PN.ID1 ---
Date of Service
Date of Service: November 17, 2023
Today's Communication
See below.
Assessment / Plan
# Haemophilus bacteremia - lung source
# Left pneumonia with acute hypoxemic respiratory failure, decreasing oxygen requirement, now 2L
(second PNA within 2 months)
# AIDS. CD4 108 (8%). h/o noncompliance. Now follows at [facility]. On Biktarvy since 09/2023.
# Recent diagnosis of large B cell lymphoma from right lung nodule biopsy. Not on treatment yet.
# s/p Sepsis
# MRSA colonized.
- Repeat blood cultures neg to date.
- sputum cx : usual resp gina
-Repeat CXR: slight improvement of left infiltrate. Possible development of right perihilar infiltrate.
- Unlikely Pneumocystis PNA
Oxygen requirement improving off PJP tx
Fungitell negative
Induced-sputum for Pneumocystis DFA with reflex to PCR, pending
- start prophylactic Bactrim DS 1 tab daily.
- Wean O2 as able
- Continue ceftriaxone (d5).
At time of discharge, transition to Augmentin 875mg po bid through 11/22/23
- Continue Biktarvy.
#Additional Past Medical History:
HIV Dx'd 2019, noncompliant. On Biktarvy since 09/2023
Syphilis treated with IM Bicillin L-A x 2018.
Recent dx of large B cell lymphoma
Chief Complaint
-: Clinical Sepsis, Pneumonia and Bacteremia
Subjective / Review of Systems
Feels same.
Loose stools stable.
Vital Signs / Physical Exam
Vital Signs
Vital Signs
Temp Pulse Resp BP Pulse Ox
97.4 F 89 19 128/71 97
11/17/23 11:00 11/17/23 11:00 11/17/23 11:00 11/17/23 11:00 11/17/23 11:00
Physical Exam
Constitutional: No Acute Distress and Comfortable
Oropharyngeal: Negative Thrush
Cardiovascular: Regular Rate and S1/S2
Pulmonary: Rales (Left lung crackles improved; Right base crackles)
Gastrointestinal: Soft, Non Tender, Non Distended and Normal Bowel Sounds
Extremities: Negative Edema
Neurological: AO x 3
Objective Data
Lab Data
Lab Results
11/17/23 06:06
11/17/23 06:06
PT 16.9 Sec (11.4-14.6) H 11/14/23 00:27
INR 1.39 11/14/23 00:27
APTT 23.6 Sec (23.4-35.0) 11/14/23 00:27
Estimated Creat Clear 122 ml/min 11/17/23 06:06
Lactic Acid Cancelled 11/13/23 20:56
Total Bilirubin 0.3 mg/dl (0.2-1.3) 11/16/23 05:37
AST 18 U/L (17-59) 11/16/23 05:37
ALT 13 U/L (0-50) 11/16/23 05:37
Alkaline Phosphatase 54 U/L (38-126) 11/16/23 05:37
Most recent labs reviewed.
Micro Results:
11/17/23 00:33 Cryptosporidium/Giardia - Final
Feces/Stool Negative for Cryptosporidium and/or Giardia Lamblia
antigens.
11/14/23 16:57 Blood Culture - Preliminary
Blood/Venous No Growth in 48 hours- Final report to follow
11/14/23 16:19 Blood Culture - Preliminary
Blood/Venous No Growth in 48 hours- Final report to follow
11/14/23 14:14 Respiratory Culture - Final
Sputum Usual Respiratory Gina
Gram Stain - Final
11/15/23 13:54 Chlamydia trachomatis (PCR) - Final
Urine Neisseria gonorrhoeae (PCR) - Final
11/13/23 12:52 Blood Culture - Preliminary
Blood/Venous Haemophilus influenzae
Gram Stain - Preliminary
11/13/23 12:51 Blood Culture - Preliminary
Blood/Venous Haemophilus influenzae
Gram Stain - Preliminary
11/14/23 00:21 Legionella Urinary Antigen - Final
Urine Negative for Legionella pneumophila Serogroup 1 antigen.
A negative result does not rule out the possiblity of
Legionella infection due to other serogroups or species of
Legionella. Clinical correlation is recommended.
Streptococcus pneumoniae Antigen (M - Final
Negative for Streptococcus pneumoniae antigen.
A negative result does not exclude infection with
Streptococcus pneumoniae. Clinical correlation is
recommended.
11/13/23 23:38 Nasal Screen MRSA (PCR) - Final
Nose Staph aureus MRSA
11/13/23 12:51 Influenza Types A & B (АЛЕКСАНДР) - Final
Nasal Swab Negative for Influenza A & B, NAAT
Negative results must be combined with clinical observations
and patient history.
Nucleic Acid Amplification test (NAAT)performed on the
[employer] platform.
11/13/23 CXR: Moderately extensive left perihilar pneumonia
11/16/24 CXR: Persistent, though slightly improved left perihilar pneumonia. Findings suggest possible interval development of subtle right perihilar pneumonia versus mild noncardiogenic interstitial edema. Clinical correlation recommended.
--- NOTE | 2023-11-17 14:46 | W.DCSUMMARY ---
Addendum entered and electronically signed by Ayo Macedo MD 11/18/23 21:39:
Attending Addendum:
Read reviewed and agree. See same day progress note for additional details.
Evan Macedo MD
Original Note:
Documented by User: Monique Powell MD, Resident 11/18/23 19:09
Discharge Summary
Discharge Data
Date of Admission: 11/13/23
Date of Discharge: 11/18/23
-
Pending Results: No
Hospital Course
Pt is a 58 y old male with hx of HIV/AIDS who presented to ED via EMS with SOB. He was found to be in acute hypoxic respiratory failure. He was diagnosed with sepsis bacteremia secondary to PNA in immunocompromised patient. He was febrile,
hypotensive, tachypneic, tachycardic, with leukocytosis on day of admission. He was started on broad spectrum antibiotics, and admitted to ICU. CD4 count and infectious disease labs with respect to immunocompromise were drawn. Following blood and
sputum cultures, Ceftriaxone was continued, Biktarvy continued, and pneumocystic Jiroveci prophylaxis started. Pt responded earnestly to treatment and was weaned off supplemental O2. Did not require pressors. He will be transitioned from Ceftriaxone
to Augmentin PO outpatient through 11/22/2023. To continue with Biktarvy, and ppx Bactrim. Upper extremity venous US showed superficial veinous thrombosis of cephalic vein. Pt was advised to use warm compresses at home.
Follow up with PCP Dr. Anabela Marley within one week.
Discharge Plan
-
Patient Disposition: Home (Routine Discharge)
Discharge Diagnosis/Procedures: Sepsis bacteremia, pneumonia
Condition: Good
Diet: No restrictions
Activity: No restrictions
Driving Restrictions: As prior to admission
Bathing Restrictions: None
Referrals:
Anabela Marley CRNP [Family Provider] -
Additional Discharge Medication Instructions: Please follow up with PCP shortly. Important to take all medications and follow necessary follow ups.
Prescriptions:
New
sulfamethoxazole-trimethoprim 800-160 mg Tablet
1 tab PO DAILY 30 Days Qty: 30 0RF
albuterol sulfate [ProAir HFA] 90 mcg/actuation HFA aerosol inhaler
2 puff inhalation Q6H PRN (Reason: shortness of breath or wheezing) Qty: 6.7 0RF
amoxicillin-pot clavulanate 875-125 mg tablet
1 tab PO BID 8 Days Qty: 16 0RF
Continued
prednisone 20 mg Tablet
40 mg PO DAILY
Patient Comments:
11/13/2023, prescription states, take 2 tablets daily@0800 'until Oncologist tells you stop'.
Biktarvy 50-200-25 mg Tablet
1 tab PO DAILY
Discharge Orders:
Discharge Patient (As Directed); Ordered 11/18/23
Ordered By: Monique Powell
Discharge Date and Time
Discharge Date/Time: 11/18/23 20:13
Print Language: [place]

Documented by User: Ayo Macedo MD 11/18/23 21:33
Discharge Summary
Discharge Data
Date of Admission: 11/13/23
Date of Discharge: 11/18/23
Hospital Course
Pt is a 58 y old male with hx of HIV/AIDS who presented to ED via EMS with SOB. He was found to be in acute hypoxic respiratory failure. He was diagnosed with sepsis bacteremia secondary to PNA in immunocompromised patient. He was febrile,
hypotensive, tachypneic, tachycardic, with leukocytosis on day of admission. He was started on broad spectrum antibiotics, and admitted to ICU. CD4 count and infectious disease labs with respect to immunocompromise were drawn. Following blood and
sputum cultures, Ceftriaxone was continued, Biktarvy continued, and pneumocystic Jiroveci prophylaxis started. Pt responded earnestly to treatment and was weaned off supplemental O2. Did not require pressors. He will be transitioned from Ceftriaxone
to Augmentin PO outpatient through 11/26/2023. To continue with Biktarvy, and ppx Bactrim. Upper extremity venous US showed superficial veinous thrombosis of cephalic vein. Pt was advised to use warm compresses at home.
Follow up with PCP Dr. Anabela Marley within one week.
Discharge Plan
-
Patient Disposition: Home (Routine Discharge)
Discharge Diagnosis/Procedures: Sepsis bacteremia, pneumonia
Condition: Good
Diet: No restrictions
Activity: No restrictions
Driving Restrictions: As prior to admission
Bathing Restrictions: None
Referrals:
Anabela Marley CRNP [Family Provider] -
Additional Discharge Medication Instructions: Please follow up with PCP shortly. Important to take all medications and follow necessary follow ups.
Prescriptions:
New
sulfamethoxazole-trimethoprim 800-160 mg Tablet
1 tab PO DAILY 30 Days Qty: 30 0RF
albuterol sulfate [ProAir HFA] 90 mcg/actuation HFA aerosol inhaler
2 puff inhalation Q6H PRN (Reason: shortness of breath or wheezing) Qty: 6.7 0RF
amoxicillin-pot clavulanate 875-125 mg tablet
1 tab PO BID 8 Days Qty: 16 0RF
Continued
prednisone 20 mg Tablet
40 mg PO DAILY
Patient Comments:
11/13/2023, prescription states, take 2 tablets daily@0800 'until Oncologist tells you stop'.
Biktarvy 50-200-25 mg Tablet
1 tab PO DAILY
Discharge Orders:
Discharge Patient (As Directed); Ordered 11/18/23
Ordered By: Monique Powell
Discharge Date and Time
Discharge Date/Time: 11/18/23 20:13
Print Language: [place]
[2023-11-17 15:00] VITALS: BP 133/74
--- NOTE | 2023-11-17 15:58 | CM ---
Case management following for d/c planning
Pt remains on oxygen - plan is to wean
Will need ride when d/c'ed
Watch for home O2 needs
Plan - home no needs anticipated
[2023-11-17] MEDS: LOVENOX 40 MG SC (17:47)
[2023-11-17 19:44] VITALS: BP 125/70
--- NOTE | 2023-11-17 21:10 | PTCARENOTE ---
@2100: Pt appeared to be sleeping.Pt refused ultrasound and stated,'I'll do it tomorrow'.
[2023-11-17 23:13] VITALS: BP 129/73
[2023-11-18 03:48] VITALS: BP 121/59
[2023-11-18 06:19] LABS: Hematocrit 32.1 % (39.0-52.0); Mean Corp Hgb Conc. 34.3 g/dL (33.0-37.0); Mean Corpuscular Hgb 29.1 pg (27.0-31.0); Mean Corpuscular Volume 84.9 fL (80.0-94.0); Mean Platelet Volume 9.9 fL (7.4-10.4); Platelet Count 372 10^3/uL (130-400); Red Blood Cell Count 3.78 10^6/uL (4.70-6.10); Red Cell Dist. Width 20.8 % (11.5-14.5); White Blood Cell Count 6.3 10^3/uL (4.8-10.8)
[2023-11-18 06:44] LABS: Blood Urea Nitrogen 9 mg/dl (9-20); Calcium 8.9 mg/dl (8.4-10.2); Carbon Dioxide 29 mmol/L (22-30); Chloride 108 mmol/L (98-107); Estimated Creatinine Clearance 122 ml/min; Glucose 97 mg/dl (70-99); Potassium 3.9 mmol/L (3.5-5.1); Sodium 139 mmol/L (135-145); eGFR > 60.00
[2023-11-18 07:30] VITALS: BP 133/79
[2023-11-18] MEDS: PULMICORT 0.25 MG INH (07:38)
[2023-11-18] MEDS: DUONEB 3 ML INH ×3 (07:38→15:29)
[2023-11-18] MEDS: VISBIOME 1 CAP PO (08:27)
[2023-11-18] MEDS: BIKTARVY 50-200-25 MG TABLET 1 TABLET PO (08:27)
[2023-11-18] MEDS: BACTRIM DS 800 MG/160 MG 1 TABLET PO (08:27)
[2023-11-18 08:35] VITALS: BP 125/79; PULSE 85; O2SAT 91
--- NOTE | 2023-11-18 08:54 | PTOTSP ---
The patient is independent with ambulation and elevations, no mobility deficits noted. No PT needs identified at this time, will sign off.
--- NOTE | 2023-11-18 09:34 | W.PN.ID1 ---
Date of Service
Date of Service: November 18, 2023
Today's Communication
See below.
Assessment / Plan
# Haemophilus bacteremia - lung source
# Left pneumonia with acute hypoxemic respiratory failure, decreasing oxygen requirement, now off oxygen
(second PNA within 2 months)
# s/p Sepsis
- Repeat blood cultures
- sputum cx : usual resp gina
-Repeat CXR: slight improvement of left infiltrate. Possible development of right perihilar infiltrate.
- Can transition ceftriaxone to Augmentin 875mg po bid through 11/26/23
# Acute RUE DVT
- Likely due to thrombophlebitis from recent antecubital PIV
-Management as per primary team.
# AIDS. CD4 108 (8%).
-h/o noncompliance. Now follows at [facility]. On Biktarvy since 09/2023.
-Unlikely Pneumocystis PNA
Oxygen requirement improved off PJP tx
Fungitell negative
Induced-sputum for Pneumocystis DFA with reflex to PCR, still pending
Started on PJP prophylaxis Bactrim DS 1 tab daily until CD4 >200 for 3months or longer.
-Continue Biktarvy
-Follow-up with Dr. Adele Marley.
# Recent diagnosis of large B cell lymphoma from right lung nodule biopsy. Not on treatment yet.
- Emphasized importance with med compliance with Biktarvy to control HIV, increase immune function as chemo will further suppressed immune system.
#Additional Past Medical History:
HIV Dx'd 2019, noncompliant. On Biktarvy since 09/2023
Syphilis treated with IM Bicillin L-A x 2018.
Recent dx of large B cell lymphoma
Chief Complaint
-: Pneumonia and Bacteremia
Subjective / Review of Systems
Feels well. Wants to go home.
RUE swelling started 2 days ago.
Vital Signs / Physical Exam
Vital Signs
Vital Signs
Temp Pulse Resp BP Pulse Ox
98.1 F 85 16 133/79 91
11/18/23 07:30 11/18/23 07:43 11/18/23 07:43 11/18/23 07:30 11/18/23 07:43
Physical Exam
Constitutional: No Acute Distress and Comfortable
Oropharyngeal: Negative Thrush
Cardiovascular: Regular Rate and S1/S2
Pulmonary: Rales (crackles mid left lung)
Gastrointestinal: Soft, Non Tender and Non Distended
Genito-Urinary: Negative CVA Tenderness
Extremities: Edema (RUE: arm + edema above previous antecubital PIV site.)
Neurological: AO x 3
Objective Data
Lab Data
Lab Results
11/18/23 06:01
11/18/23 06:01
PT 16.9 Sec (11.4-14.6) H 11/14/23 00:27
INR 1.39 11/14/23 00:27
APTT 23.6 Sec (23.4-35.0) 11/14/23 00:27
Estimated Creat Clear 122 ml/min 11/18/23 06:01
Lactic Acid Cancelled 11/13/23 20:56
Total Bilirubin 0.3 mg/dl (0.2-1.3) 11/16/23 05:37
AST 18 U/L (17-59) 11/16/23 05:37
ALT 13 U/L (0-50) 11/16/23 05:37
Alkaline Phosphatase 54 U/L (38-126) 11/16/23 05:37
Most recent labs reviewed.
Micro Results:
11/14/23 16:57 Blood Culture - Preliminary
Blood/Venous No Growth in 72 hours- Final report to follow
11/14/23 16:19 Blood Culture - Preliminary
Blood/Venous No Growth in 72 hours- Final report to follow
11/17/23 00:33 Cryptosporidium/Giardia - Final
Feces/Stool Negative for Cryptosporidium and/or Giardia Lamblia
antigens.
11/14/23 14:14 Respiratory Culture - Final
Sputum Usual Respiratory Gina
Gram Stain - Final
11/15/23 13:54 Chlamydia trachomatis (PCR) - Final
Urine Neisseria gonorrhoeae (PCR) - Final
11/13/23 12:52 Blood Culture - Preliminary
Blood/Venous Haemophilus influenzae
Gram Stain - Preliminary
11/13/23 12:51 Blood Culture - Preliminary
Blood/Venous Haemophilus influenzae
Gram Stain - Preliminary
11/14/23 00:21 Legionella Urinary Antigen - Final
Urine Negative for Legionella pneumophila Serogroup 1 antigen.
A negative result does not rule out the possiblity of
Legionella infection due to other serogroups or species of
Legionella. Clinical correlation is recommended.
Streptococcus pneumoniae Antigen (M - Final
Negative for Streptococcus pneumoniae antigen.
A negative result does not exclude infection with
Streptococcus pneumoniae. Clinical correlation is
recommended.
11/13/23 23:38 Nasal Screen MRSA (PCR) - Final
Nose Staph aureus MRSA
11/13/23 12:51 Influenza Types A & B (АЛЕКСАНДР) - Final
Nasal Swab Negative for Influenza A & B, NAAT
Negative results must be combined with clinical observations
and patient history.
Nucleic Acid Amplification test (NAAT)performed on the
[employer] platform.
11/13/23 CXR: Moderately extensive left perihilar pneumonia
11/16/24 CXR: Persistent, though slightly improved left perihilar pneumonia. Findings suggest possible interval development of subtle right perihilar pneumonia versus mild noncardiogenic interstitial edema. Clinical correlation recommended.
Care Review
Plan reviewed with: Physician (Dr. Powell)
--- NOTE | 2023-11-18 09:48 | W.PN.HOSP.TC ---
Addendum entered and electronically signed by Ayo Macedo MD 11/18/23 21:39:
Attending Addendum-
I saw and evaluated the patient. I reviewed the resident�s note and agree with findings and plan as documented in the resident�s note. denies SI or HI, diarrhea resolved. RUE swelling improved wants to go home, Full 12 point ROS reviewed and
negative except as documented gen NAD heart RRR lungs b/l faint crackles abd soft RUE edema pulses intact Plan:
# Superficial Venous Thrombosis - right warm compress f/u as OP
# Sepsis secondary to PNA- ID input appreciated on rocephin, blood cx pos for h flu, r/o PJP- results-P on DC fungitell-negative, MRSA colonized
# H flu bacteremia- on rocephin ID on board DC on augmentin -> 11/25
# Leukopenia- resolved, cont to monitor repeat CBC as OP
# Septic Shock- resolved no need for pressors cont to monitor
# Diarrhea- resolved, crypto neg cont to monitor
# Tobacco Abuse- counselled to quit cont sophia patch
# H/O Etoh Abuse- encouraged to continue current path of sobriety
# Acute Hypoxemic Respiratory Failure- resolved, weaned off o2
# Met Acidosis- resolved cont to monitor repeat BMP as OP
# AIDS- CD4 counts 108 (8%) cont biktarvy, PCP results pending, cont bactrim proph as OP
# HIV Lymphoma- f/u heme onc as OP
Dispo- DC home today
Time spent coordinating care, review of plan of care with resident, review of records, med rec, consults, notes, labs, rads, d/w nursing DC planning, transition of care 37 mins
Original Note:
Today's Communication/Plan
-
Continue Abx, transition to PO
Discharge planning
Assessment / Plan
Assessment / Plan
Acute hypoxemic respiratory failure:
Secondary to pneumonia
CXR 11/12: Moderately extensive left perihilar pneumonia
- Repeat ABGs marked improvement
- Hypoxemia improved. Weaning as tolerated
- incentive spirometry
- Nebulizer treatment for wheezing
Sepsis:
Secondary to pneumonia in immunocompromized patient. Haemophilus influenzae bacteremia
- Leukocytosis resolved
- Sputum Cx grew usual respiratory gina
- Repeat Blood cultures no growth
- ID on board
- Transition ceftriaxone to Augmentin 875mg po bid outpatient through 11/26/23
- PJP Ppx started: Bactrim DS 1 tab daily
AIDS:
CD4 count 108 (8%). On Biktarvy daily since HIV diagnosis since 09/2023. Hx of nonadherence to regimen
- Continue Biktarvy
- Fungitell negative, PJP pending
- STD labs Gonorrhea and chlamydia PCR negative
Superficial venous thrombosis
- Venous US RUE revealed cephalic vein thrombosis
- Warm compresses
Large B-cell lymphoma
Recent diagnosis. Not on chemotherapy
- Outpatient hemonc follow up
Diarrhea:
x1 week. CD4 count <200
- Giardia/Cryptosporidium fecal stool/ova negative
- resolved with probiotics
Hyponatremia:
- Resolved with fluids
Hypokalemia:
- Repleted
BUN/Cr elevated:
- Cr improved
DVT prophylaxis: SCDs
Code status: Full code
Dispo: Discharge to home today
Anticipated Discharge: Today
Subjective/Interval History
-
Date of Service: November 18, 2023
Objective Data
-
Labs:
Laboratory Results
11/18/23
06:01
WBC 6.3
Hgb 11.0 L
Hct 32.1 L
Plt Count 372 D
Sodium 139
Potassium 3.9
Chloride 108 H
Carbon Dioxide 29
BUN 9
Creatinine 0.7
Glucose 97
Calcium 8.9
Vital Signs:
Vital Signs
Temp Pulse Resp BP Pulse Ox
98.1 F 85 16 133/79 91
11/18/23 07:30 11/18/23 07:43 11/18/23 07:43 11/18/23 07:30 11/18/23 07:43
I&O
11/17/23 11/18/23 11/19/23
06:59 06:59 06:59
Intake Total 970 / 970 1020 / 1020
Output Total 300 / 300
Balance 670 / 670 1020 / 1020
Review of Systems
-
History Source: Patient
Constitutional: Reports No Symptoms
Respiratory: Reports Cough; Denies Trouble Breathing
Cardiac: Reports No Symptoms and Chest Pain
Abdomen/GI: Reports No Symptoms; Denies Abdominal Pain, Diarrhea or Constipated
Genitourinary: Reports No Symptoms; Denies Dysuria or Bleeding
Musculoskeletal: Reports Other (right upper extremity swelling)
Skin: Reports No Symptoms
Physical Exam
-
General: No Apparent Distress and Respiratory Distress
Respiratory: Wheezes (mild scattered wheezing), Crackles (mild, bilateral lower lobe ) and Non Labored Respirations
Cardiac: Regular Rhythm, S1/S2 and JVD; Negative Murmur, Rub or Calf Tenderness
Musculoskeletal: No Clubbing, No Cyanosis, No Edema and Other (palpable mass in RUE extending from cubital fossa to mid arm)
Skin: Warm and Dry; Negative Rash or Lesions
Neuro: Awake, Alert and Oriented
Psych: Calm
[2023-11-18 12:00] VITALS: BP 139/84
[2023-11-18] MEDS: ROCEPHIN 2000 MG IV (12:53)
[2023-11-18] MEDS: STERILE WATER FOR INJECTION 20 ML IV (12:54)
--- NOTE | 2023-11-18 15:00 | CM ---
Case management following for d/c planning
Weaned off of oxygen
Will need ride when d/c'ed
Watch for home O2 needs
Plan - home no needs anticipated
[2023-11-18 16:00] VITALS: BP 135/80
[2023-11-18] MEDS: LOVENOX SC (17:46)
--- NOTE | 2023-11-18 17:57 | W.DS.TRANS ---
DC Summary - [employer]
-
Discharge Instructions:
Discharge Diagnosis/Procedures Sepsis bacteremia, pneumonia
Diet No restrictions
Activity No restrictions
Driving Restrictions As prior to admission
Bathing Restrictions None
Instructions: Follow up with PCP: Dr. Adele Marley
Bactrim DS 1 tab daily until CD4 >200 for 3months or longer.
Continue Biktarvy
Take Augmentin 875mg po bid through 11/26/23
Stand-Alone Forms:
Changes to Home Medications: Yes
Discharge Medications:
DC Medications w/original date entered in [employer]
bictegravir 50 mg-emtricitabine 200 mg-tenofovir alafenam 25 mg tablet (Biktarvy) 1 tab PO DAILY HIV 11/13/23
prednisone 20 mg tablet 40 mg PO DAILY IMMUNOSUPPRESSIVE 11/13/23
albuterol sulfate 90 mcg/actuation aerosol inhaler (ProAir HFA) 2 puff inhalation Q6H PRN shortness of breath or wheezing #6.7 grams 11/18/23
amoxicillin 875 mg-potassium clavulanate 125 mg tablet 1 tab PO BID 8 days #16 tabs 11/18/23
sulfamethoxazole 800 mg-trimethoprim 160 mg tablet 1 tab PO DAILY 30 days #30 tabs 11/18/23
Home Medication Changes
sulfamethoxazole 800 mg-trimethoprim 160 mg tablet 1 tab PO DAILY 30 days #30 tabs 11/18/23
albuterol sulfate 90 mcg/actuation aerosol inhaler (ProAir HFA) 2 puff inhalation Q6H PRN shortness of breath or wheezing #6.7 grams 11/18/23
amoxicillin 875 mg-potassium clavulanate 125 mg tablet 1 tab PO BID 8 days #16 tabs 11/18/23
Pending Results: Yes
Additional Pending Results:
Induced-sputum for Pneumocystis DFA with reflex to PCR
--- NOTE | 2023-11-18 18:15 | PTCARENOTE ---
pt pressed CB approx. 1630, agitated asking when he was going to be d/c'd, no D/C order. reached out to attending. Resident reminded at 17:50 when pt was agitated again, asking to leave. after reviewing CM note and s/w patient he would need
transportation. pt frustrated, asking why ride was not obtained. CM was never informed of plan to d/c today and therefore did not arrange transportation.
--- NOTE | 2023-11-21 11:49 | W.PN.UPDATE ---
Update Note
Progress Note Update
Called pt's primary, Dr. Anabela Marley for continuity of care. PCP is up to date on his admission and care and will coordinate follow up care.
== END 2023-11-18 20:13 | disposition home or self-care (01) | DRG 974 ==
LOC: 3 WEST ACU 16:43
PROVIDERS: Internal Medicine Infectious Disease; Nurse Practitioner Family; Student in an Organized Health Care Education/Training Program; ADMITTING PHYSICIAN Internal Medicine; ATTENDING PHYSICIAN Family Medicine; EMERGENCY PHYSICIAN Student in an Organized Health Care Education/Training Program; FAMILY PHYSICIAN Nurse Practitioner Adult Health; OTHER PHYSICIAN Internal Medicine Critical Care Medicine; OTHER PHYSICIAN Internal Medicine Infectious Disease
DX: B20 Human immunodeficiency virus [HIV] disease (principal); J96.01 Acute respiratory failure with hypoxia; A41.9 Sepsis, unspecified organism; R65.21 Severe sepsis with septic shock; E87.20 Acidosis, unspecified; J18.9 Pneumonia, unspecified organism; C83.30 Diffuse large B-cell lymphoma, unspecified site; I95.9 Hypotension, unspecified; E88.09 Other disorders of plasma-protein metabolism, not elsewhere classified; B96.3 Hemophilus influenzae [H. influenzae] as the cause of diseases classified elsewhere
CPT/HCPCS: 36600; 71046; 80048; 80053; 80202; 81003; 81015; 82805; 83605; 83735; 84100; 85025; 85027; 85610; 85730; 86361; 87040; 87070; 87077; 87185; 87205; 87328; 87329; 87449; 87491; 87502; 87536; 87591; 87641; 87811; 87899; 93005; 93971; 94002; 94640; 96361; 96365; 97162; 99285; 99406; P9047